=== PATIENT | female | born 1995 | race Hispanic/Latino ===

== ENCOUNTER 2024-12-26 05:34 | Emergency (ER) | payer SELFPAY ==
[~2024-12-26] VITALS: Ht 157.5 cm; Wt 90.7 kg
--- NOTE | 2024-12-26 05:50 | NUR ---
PT CARE ASSUMED AT THIS TIME
--- NOTE | 2024-12-26 05:59 | NUR ---
UA CUP PROVIDED TO PT
[2024-12-26 06:02] VITALS: TEMP 97.8
[2024-12-26 06:09] LABS: BASOPHILS # (AUTO) 0.05 K/uL (0.00-0.20); BASOPHILS % (AUTO) 0.4 % (0.0-5.0); EOSINOPHILS # (AUTO) 0.01 K/uL (0.00-0.70); EOSINOPHILS % (AUTO) 0.1 % (0.0-8.0); HEMATOCRIT 37.1 % (36-48); IMMATURE GRANULOCYTE ABSOLUTE 0.05 K/uL (0-1); LYMPHOCYTES # (AUTO) 1.5 K/uL (1.0-4.8); LYMPHOCYTES % (AUTO) 13.3 % (21.0-51.0); MEAN CORPUSCULAR HEMOGLOBIN 27.4 pg (27.0-33.0); MEAN CORPUSCULAR HGB CONC 32.6 g/dL (32.0-36.0); MEAN CORPUSCULAR VOLUME 83.9 fL (79-99); MONOCYTES # (AUTO) 0.5 K/uL (0.1-1.0); MONOCYTES % (AUTO) 4.4 % (3.0-13.0); NEUTROPHILS # (AUTO) 9.3 K/uL (1.8-7.7); NEUTROPHILS % (AUTO) 81.4 % (40.0-77.0); PLATELET COUNT (AUTO) 199 K/uL (130-400); RED BLOOD CELL COUNT(AUTO) 4.42 MIL/uL (4.00-5.50); WHITE BLOOD COUNT (AUTO) 11.4 K/uL (4.8-10.8)
--- NOTE | 2024-12-26 06:14 | ERN ---
ED Note History of Present Illness Stated Complaint: ABD PAIN Chief Complaint: Abdominal Pain Time Seen by MD: 05:51 Dictation: This is a 29-year-old female who presented to the emergency room with complaints of upper abdominal pain that started around 1:30 a.m.. She also began expe riencing vomitings and reports 5 episodes. No diarrhea and labs last bowel movement was 2024. No hematemesis or melena No other family members are sick. No fevers chills or rigors. Temperature 97.9 pulse 91 respirations 18 blood pressure 116/77 with a pulse oximetry of 95% on room air Allergies: Coded Allergies: Sulfa (Sulfonamide Antibiotics) (Unverified Allergy, Unknown, 12/26/24) Past Medical History Past Medical History: No Pertinent History Surgical History: None Family History: Negative LMP: December 09, 2024 RN Note Reviewed/Agreed w/PFSH: Yes Review of System Dictation Constitutional: Negative for fever,chills, and weight loss Eyes: Negative for injury, pain,redness, and discharge ENT: Negative for injury,pain or swelling Cardiovascular: Negative for chest pain, palpitations, and edema Respiratory: Negative for shortness of breath, cough, and wheezing, Abdomen/GI: Positive for epigastric and upper abdominal pain, nausea, vomiting, denied diarrhea, and constipation Back: Negative for injury and pain : Negative for injury, bleeding and discharge MS/Extremity: Negative for injury and deformity Skin: Negative for rash, and discoloration Neuro: Negative for headache, weakness, numbness, tingling, and seizure Psych: Negative for suicide ideation, homicidal ideation, and hallucinations Initial Vital Sign VS Vital Signs Date Time Temp Pulse Resp B/P (MAP) Pulse Ox O2 Delivery O2 Flow Rate FiO2 12/26/24 05:36 97.9 91 18 116/77 98 Room Air 12/26/24 06:02 0 21 Physical Exam Dictation General: awake, alert, NAD morbidly obese female Head/Face: Normocephalic, atraumatic Eyes: PERRL, EOMI, vision at baseline ENT: oral cavity clear, TMs clear, no signs of infection Neck: Trachea midline, supple, no nuchal rigidity Cardiovascular: RRR, normal S1/S2, No MRGs, no JVD Respiratory: CTAB, no respiratory distress, No rales or wheezes Abdomen: Soft, non-tender, non-distended, normal bowel sounds, no guarding or rebound. Skin: Warm, dry, normal turgor, no rash MS/Extremity: Pulses equal, no cyanosis, neurovascular intact, FROM Neuro: COAx4, GCS 15, strength 5/5, CN 2-12 intact, normal cerebellar exam, normal gait, Psych: Normal behavior, mood, and affect normal Extremities-trace edema without any palpable cords, Homans sign is negative Results (Laboratory/Radiology) Laboratory/Radiology Laboratory Tests Test 12/26/24 05:58 White Blood Count 11.4 K/uL (4.8-10.8) H Red Blood Count 4.42 MIL/uL (4.00-5.50) Hemoglobin 12.1 g/dL (12.0-16.0) Hematocrit 37.1 % (36-48) Mean Corpuscular Volume 83.9 fL (79-99) Mean Corpuscular Hemoglobin 27.4 pg (27.0-33.0) Mean Corpuscular Hemoglobin Concent 32.6 g/dL (32.0-36.0) Red Cell Distribution Width 12.0 % (11.0-15.5) Platelet Count 199 K/uL (130-400) Mean Platelet Volume 10.9 fL (7.5-10.5) H Immature Granulocyte % (Auto) 0.4 % (0-1) Neutrophils (%) (Auto) 81.4 % (40.0-77.0) H Lymphocytes (%) (Auto) 13.3 % (21.0-51.0) L Monocytes (%) (Auto) 4.4 % (3.0-13.0) Eosinophils (%) (Auto) 0.1 % (0.0-8.0) Basophils (%) (Auto) 0.4 % (0.0-5.0) Neutrophils # (Auto) 9.3 K/uL (1.8-7.7) H Lymphocytes # (Auto) 1.5 K/uL (1.0-4.8) Monocytes # (Auto) 0.5 K/uL (0.1-1.0) Eosinophils # (Auto) 0.01 K/uL (0.00-0.70) Basophils # (Auto) 0.05 K/uL (0.00-0.20) Absolute Immature Granulocyte (auto 0.05 K/uL (0-1) Nucleated Red Blood Cells 0.0 % (0.0-0.19) Sodium Level 138 mmol/L (136-145) Potassium Level 4.0 mmol/L (3.5-5.1) Chloride Level 101 mmol/L (101-111) Carbon Dioxide Level 28 mmol/L (21-32) Blood Urea Nitrogen 10 mg/dL (7-18) Creatinine 0.6 mg/dL (0.5-1.0) Glomerular Filtration Rate Calc 125 mL/min (>90) Random Glucose 134 mg/dL (70-105) H Total Calcium 8.8 mg/dL (8.5-10.1) Lipase 27 U/L (16-77) Labs Reviewed?: Yes ED Course ED Course Orders Procedure Category Date Status Time Vital Signs Per CPOE 12/26/24 Transmitted Routine 05:44 Saline Lock Iv CPOE 12/26/24 Transmitted 05:44 Cbc With Differential LAB 12/26/24 Complete 05:44 Lipase LAB 12/26/24 Complete 05:44 Urinalysis Profile LAB 12/26/24 Logged 05:44 Basic Metabolic Panel LAB 12/26/24 Complete 05:44 ,Urine Test LAB 12/26/24 Logged 05:44 0.9%Nacl 1000ml (Ns PHA 12/26/24 Complete 1000ml) 06:30 Morphine 2mg Syg PHA 12/26/24 Complete (Morphine 2mg Syg) 06:30 Ondansetron 4mg Inj PHA 12/26/24 Complete (Zofran 4mg Inj) 06:30 Current Medications Medications (Trade) Dose Ordered Sig/Yannick Route PRN Reason Start Time Stop Time Status Last Admin Dose Admin Morphine Sulfate (morPHINE 2MG SYG) 2 mg ONCE ONCE IVP 12/26/24 06:30 12/26/24 06:31 DC 12/26/24 06:26 Ondansetron HCl (zoFRAN 4MG INJ) 4 mg ONCE ONCE IVP 12/26/24 06:30 12/26/24 06:31 DC 12/26/24 06:25 Sodium Chloride 1,000 ml @ 0 mls/hr ONCE ONCE IV 12/26/24 06:30 12/26/24 06:31 DC 12/26/24 06:25 Vital Signs Date Time Temp Pulse Resp B/P (MAP) Pulse Ox O2 Delivery O2 Flow Rate FiO2 12/26/24 06:02 97.9 75 18 111/76 100 Room Air* 0 21 12/26/24 05:36 97.9 91 18 116/77 98 Room Air We will perform diagnostic labs, advanced imaging and administer medications according to the patient's complaint. Once the results are available, will r stevieiew and personally interpreted the labs to rule out any acute life-threatening emergency the trach require immediate intervention and treatment. I will then re-evaluate the patient after treatment and diagnostic exams have return to determine whether the patient requires any further testing, can safely be discharged home or need further admission to hospital for additional treatment and evaluation. Reviewed CBC BNP 7 relatively with a normal limits WBC 11.4. Lipase is 77 7:08 a.m. patient is already feeling better no further vomitings. I updated her on the labs and with a soft benign belly likely food poisoning. We will discharge her on antiemetics Medical Decision Making MDM MDM: Differential diagnosis: Gastritis, esophagitis, gastroesophageal reflux disease, food poisoning, cholecystitis Rationale: Tests considered and ordered secondary to shared decision making include: Previous outside records reviewed: Old ER visits. Risk of complication and/or morbidity or mortality of patient management: None Medications-Per medication reconciliation Need for hospitalization: Patient does not meet criteria for hospitalization. Need for emergency major/minor surgery: No There are no social concerns with this patient. Prescription drug management Prescriptions will include symptomatic care Patient's prior external medical records from other ER visits were reviewed by me as indicated. Prior testing and results from previous visits were reviewed. Prior tests were taken into account with medical decision making and resource utilization, independent historian/historians were used to obtain complete medical history. I independently interpreted the test that were performed, results were reviewed by me and considered findings on radiology if ordered. Medical management and examination interpretation discussions were had by me with other qualified healthcare professionals as indicated for the patient's care. Problem List Problem List: (1) Gastritis (2) Food poisoning DX & DISP Disposition: Discharge Departure Impression: Primary Impression: Food poisoning Additional Impression: Gastritis Condition: Stable Scripts Ondansetron (Ondansetron Odt) 4 Mg Tab.rapdis 4 MG PO Q6HPRN PRN for nausea, #16 TAB 0 Refills Prov: AMERICA VALENCIA MD 12/26/24 Additional Instructions: Patient and the caregiver have been informed of all the diagnostic tests and the imaging conducted during the today's visit to the emergency room and has verbalized understanding of the results I have personally reviewed and interpreted all diagnostic exams performed here in the ER today as well as the vital signs documented by the nursing staff. The patient is now being discharged to home and should follow up with the primary care physician or the specialist as directed by the ER staff. Follow-up with primary care provider in 1 to 2 days. Take medications as directed here in the emergency room. Okay to continue home medications unless otherwise discussed during your visit in the emergency room today. Return to your nearest emergency room if symptoms worsen or if there is no improvement. Call 911 if you need immediate assistance. Take Tylenol or Motrin [id number] as needed and if no contraindications are present. Increase oral hydration. A wound culture or urine culture was ordered here in the emergency room department please follow-up with primary care provider and advise them to get repeat ports from our facility. If you had any Luca wrap/splints that were applied here, please do not remove them until you see your primary care or specialty. Referrals: SELF,REFERRAL (PCP) AMERICA VALENCIA MD December 26, 2024 06:14
[2024-12-26 06:19] LABS: CREATININE 0.6 mg/dL (0.5-1.0)
[2024-12-26] MEDS: ondanSETRON 4MG INJ IVP ONE (06:25)
[2024-12-26] MEDS: 0.9%NACL 1000ML 1,000 ML IV ONE (06:25)
[2024-12-26] MEDS: morPHINE 2 MG SYG IVP ONE (06:26)
--- NOTE | 2024-12-26 07:06 | NUR ---
REPORTS GIVEN TO MICHAELLE HUFFMAN AT THIS TIME
[2024-12-26 07:07] VITALS: BP 101/62; PULSE 75; RESP 16; O2SAT 100
[2024-12-26] MEDS ORDERED: ONDA-243 PO (07:07)
--- NOTE | 2024-12-26 07:31 | NUR ---
PT GIVEN INSTRUCTIONS, PT STABLE VITALS WNL NO C/O PAIN . PT IV REMOVED CATHETER INTACT. PT DRIVEN HOME BY FAMILY.
== END 2024-12-26 07:43 | disposition home or self-care (01) ==
LOC: EDH 05:34
DX: A05.9 Bacterial foodborne intoxication, unspecified (principal); K29.70 Gastritis, unspecified, without bleeding; Z88.2 Allergy status to sulfonamides
CPT/HCPCS: 99284; 96374; 96361; 96375; 80048; 83690; 85025; 36415; J2270; J7030; J2405

== ENCOUNTER 2024-12-31 19:50 | Inpatient (IN) | payer SELFPAY ==
[~2024-12-31] VITALS: Ht 157.5 cm; Wt 70.8 kg
[~2024-12-31 19:50] MED LIST: ONDA-243 PO
[2024-12-31] MEDS: ondanSETRON 4MG INJ IVP ONE (20:20)
[2024-12-31] MEDS: FAMOTIDINE 20MG VIAL IV ONE (20:20)
[2024-12-31] MEDS: 0.9%NACL 1000ML 1,000 ML IV ONE (20:20)
[2024-12-31] MEDS: morPHINE 2 MG SYG IVP ONE (20:20)
[2024-12-31 20:22] LABS: BASOPHILS # (AUTO) 0.05 K/uL (0.00-0.20); BASOPHILS % (AUTO) 0.4 % (0.0-5.0); EOSINOPHILS % (AUTO) 0.8 % (0.0-8.0); HEMATOCRIT 37.1 % (36-48); IMMATURE GRANULOCYTE ABSOLUTE 0.05 K/uL (0-1); LYMPHOCYTES # (AUTO) 1.6 K/uL (1.0-4.8); LYMPHOCYTES % (AUTO) 13.2 % (21.0-51.0); MEAN CORPUSCULAR HEMOGLOBIN 27.8 pg (27.0-33.0); MEAN CORPUSCULAR HGB CONC 32.3 g/dL (32.0-36.0); MEAN CORPUSCULAR VOLUME 85.9 fL (79-99); MONOCYTES # (AUTO) 0.7 K/uL (0.1-1.0); MONOCYTES % (AUTO) 5.6 % (3.0-13.0); NEUTROPHILS # (AUTO) 9.6 K/uL (1.8-7.7); NEUTROPHILS % (AUTO) 79.6 % (40.0-77.0); PLATELET COUNT (AUTO) 254 K/uL (130-400); RED BLOOD CELL COUNT(AUTO) 4.32 MIL/uL (4.00-5.50); WHITE BLOOD COUNT (AUTO) 12.1 K/uL (4.8-10.8)
[2024-12-31 20:35] LABS: CREATININE 0.6 mg/dL (0.5-1.0); POTASSIUM 3.7 mmol/L (3.5-5.1)
[2024-12-31 20:41] LABS: ALBUMIN 3.8 g/dL (3.5-5.0); BILIRUBIN,DIRECT 0.1 mg/dL (0.0-0.3); BILIRUBIN,TOTAL 0.3 mg/dL (0.2-1.0); TOTAL PROTEIN, SERUM 7.8 g/dL (6.0-8.3)
[2024-12-31] MEDS ORDERED: IOHEXOL-350 75 ML VIAL IV ONE (21:07)
--- NOTE | 2024-12-31 21:47 | HMCIMG ---
CT ABDOMEN WITH CONTRAST. CT PELVIS WITH CONTRAST INDICATION: Right upper abdominal tenderness TECHNIQUE: Routine transaxial images using 5 mm slice thickness were obtained after the intravenous infusion of 100 mL of Omnipaque 350 without adverse effects. Oral contrast was not administered. Rectal contrast was not administered. Coronal and sagittal reformatted images acquired for interpretation. CT was performed with one or more of the following dose reduction techniques: Automated exposure control, adjustment of the mA and/or kV according to patient size, or use of iterative reconstruction technique. COMPARISON: None FINDINGS: ABDOMEN: Heart size is normal. Visible lung bases are clear. The liver is normal in size and smooth in contour without lesions or biliary duct dilation. Diffuse low attenuation of the liver parenchyma suggests fatty change. The spleen is normal in size without lesions. Gallbladder wall thickening and mild pericholecystic inflammatory fat stranding. Mild gallbladder wall distention. The pancreas appears normal without pancreatic duct dilation. The adrenal glands appear normal. Both kidneys appear unremarkable. Cortical nephrograms are symmetric and normal in appearance bilaterally. No evidence for intra-abdominal free air or organized fluid collection. No retrocrural, intraabdominal, or retroperitoneal lymphadenopathy identified. No aortic aneurysmal dilation or dissection identified. PELVIS: No evidence for free air or organized pelvic fluid collection. No significant pelvic adenopathy detected. Visualized small and large bowel loops appear unremarkable. Terminal ileum appears normal. The appendix appears normal. The urinary bladder appears unremarkable. Visible osseous structures are intact. IMPRESSION: Findings suggesting acute cholecystitis. Hepatic steatosis.
--- NOTE | 2024-12-31 22:07 | HP ---
[facility] HISTORY AND PHYSICAL Date of Service: December 31, 2024 Time of Service: 22:07 Attending/supervising physicians: Dr. Lay and Dr. Ford HISTORY OF PRESENT ILLNESS: Ms. Ross is a 29-year-old female who [place] [facility] [place] evaluation of right upper abdominal pain ongoing for five days p.r.n. Per chart review, the patient presented to the hospital on 12/26/2024 for evaluation of upper abdominal pain. At that time she reports she was experienced five episodes of vomiting. Patient denied diarrhea, hematemesis or melena. The patient was discharged home with the diagnosis of gastritis and food poisoning. She was given a prescription for Zofran. Today she presented for worsening abdominal pain. Remarkable lab results: WBCs 12.1, BUN 4, glucose 107, alk-phos 47. CT abdomen and pelvis: Gallbladder wall thickening and mild pericholecystic inflammatory fat stranding. Mild gallbladder wall distention. Findings suggesting acute cholecystitis. Hepatic steatosis. In ED the patient received Zofran 4 mg IV, Pepcid 20 mg IV, morphine 2 mg IV, Toradol 50 mg IV, NS1 L bolus, Zosyn 3.375. ED provider request patient be admitted with the diagnosis of acute cholecystitis. REVIEW OF SYSTEMS 12-point ROS reviewed with the patient. All pertinent positives mentioned above. Otherwise negative, noncontributory, non-pertinent. PAST MEDICAL HISTORY: As mentioned above PAST SURGICAL HISTORY: None PAST SOCIAL HISTORY: Patient denies alcohol, tobacco, illicit drug use. FAMILY HISTORY: Noncontributory Coded Allergies: Sulfa (Sulfonamide Antibiotics) (Unverified Allergy, Unknown, 12/26/24) PHYSICAL EXAM GENERAL APPEARANCE: The patient is awake, alert, and oriented, in no acute cardiopulmonary distress. NEUROLOGICAL: Cranial nerves II-XII grossly intact. Motor is 5/5 in bilateral upper and lower extremities proximal to distal. No sensory deficits. HEENT: Face is symmetric. Pupils are equal and reactive. Extraocular movements are intact. NECK: Supple. No JVD. No thyromegaly. No submental, submandibular, pre-/posta uricular, occipital or supraclavicular lymphadenopathy. CHEST: Normal chest expansion. No Telemetry. LUNGS: Absence of any rales, rhonchi or any wheezing. CARDIOVASCULAR: Regular. S1 and S2 normal. No appreciable rubs, murmurs or gallops. ABDOMEN: Obese. Upper abdominal tenderness. Soft and nondistended. There is no rebound, voluntary guarding, or rigidity. : Deferred. No Wren. EXTREMITIES: Non-edematous and not cyanotic. No clubbing. Good capillary refill. SKIN: No skin breakdown. Vital Sign (Last 24 Hours) 12/31/24 12/31/24 20:00 20:51 Temp 99.3 Pulse 95 Resp 16 B/P (MAP) 115/77 Pulse Ox 100 O2 Delivery Room Air* O2 Flow Rate 0 FiO2 21 LABS: Laboratory: Test 12/31/24 20:14 Range/Units White Blood Count 12.1 H 4.8-10.8 K/uL Red Blood Count 4.32 4.00-5.50 MIL/uL Hemoglobin 12.0 12.0-16.0 g/dL Hematocrit 37.1 36-48 % Mean Corpuscular Volume 85.9 79-99 fL Mean Corpuscular Hemoglobin 27.8 27.0-33.0 pg Mean Corpuscular Hemoglobin Concent 32.3 32.0-36.0 g/dL Red Cell Distribution Width 12.0 11.0-15.5 % Platelet Count 254 130-400 K/uL Mean Platelet Volume 10.0 7.5-10.5 fL Immature Granulocyte % (Auto) 0.4 0-1 % Neutrophils (%) (Auto) 79.6 H 40.0-77.0 % Lymphocytes (%) (Auto) 13.2 L 21.0-51.0 % Monocytes (%) (Auto) 5.6 3.0-13.0 % Eosinophils (%) (Auto) 0.8 0.0-8.0 % Basophils (%) (Auto) 0.4 0.0-5.0 % Neutrophils # (Auto) 9.6 H 1.8-7.7 K/uL Lymphocytes # (Auto) 1.6 1.0-4.8 K/uL Monocytes # (Auto) 0.7 0.1-1.0 K/uL Eosinophils # (Auto) 0.10 0.00-0.70 K/uL Basophils # (Auto) 0.05 0.00-0.20 K/uL Absolute Immature Granulocyte (auto 0.05 0-1 K/uL Nucleated Red Blood Cells 0.0 0.0-0.19 % Sodium Level 140 136-145 mmol/L Potassium Level 3.7 3.5-5.1 mmol/L Chloride Level 102 101-111 mmol/L Carbon Dioxide Level 29 21-32 mmol/L Blood Urea Nitrogen 4 L 7-18 mg/dL Creatinine 0.6 0.5-1.0 mg/dL Glomerular Filtration Rate Calc 125 >90 mL/min Random Glucose 107 H 70-105 mg/dL Total Calcium 9.4 8.5-10.1 mg/dL Total Bilirubin 0.3 0.2-1.0 mg/dL Direct Bilirubin 0.1 0.0-0.3 mg/dL Aspartate Amino Transf (AST/SGOT) 19 10-37 U/L Alanine Aminotransferase (ALT/SGPT) 20 12-78 U/L Alkaline Phosphatase 47 L 50-136 U/L Total Protein 7.8 6.0-8.3 g/dL Albumin 3.8 3.5-5.0 g/dL Lipase 26 16-77 U/L Serum Test, Qualitative NEGATIVE NEGATIVE DIAGNOSTICS / RADIOLOGY: [ ] ASSESSMENT: Acute cholecystitis, POA Acute complicated cystitis, POA Dehydration, POA Leukocytosis, POA Hyperglycemia without history of diabetes mellitus Ketonuria, POA Obesity, BNP 28.6 PLAN: Admit to medical floor. NPO for now. Continue Zosyn 3.375 IV q.8 hours. (1st dose of Zosyn was administered in ED) LR at 100 mL/hr. P.r.n. medications for: Pain management, fever, nausea, vomiting, constipation, hypertension. Consult general surgeon in a.m.. Follow urine culture. Antibiotics tailored to culture results. As needed glucometer sticks. Blood pressure checks every 4 hours and as needed. Monitor renal and liver function. Monitor electrolytes and treat accordingly. GI and DVT prophylaxis. A.m. labs. ADVANCED CARE PLANNING 1. Which of the following were discussed? Hospice Care - No Therapeutic options - Yes Advance Directives - Yes Other discussions - 2. Discussed with who? Patient 3. Voluntary nature of this service was explained to the patient? Yes 4. Amount of time spent - __ over 35 minutes 5. Reviewed by Physician? (if this service was performed by NPP) Yes ATTESTATION BY PHYSICIAN I have seen and examined the patient. I reviewed the documentation, medical decision making, and treatment plan as noted by the mid-level provider above. I agree with the findings and plan of care. ENE CANAS SHOP REPAIRER December 31, 2024 22:07
[2024-12-31] MEDS: ketOROlac 15MG/ML VIAL (15MG/ML) IV ONE (22:12)
[2024-12-31] MEDS: ZOSYN 3.375GM +NS 50ML IV ONE (22:12)
--- NOTE | 2024-12-31 22:12 | ERN ---
General Chief Complaint: Abdominal Pain Stated Complaint: ABD PAIN Time Seen by MD: 19:56 Time Seen by Midlevel: 19:56 Source: patient History of Present Illness Initial Comments The patient is a 29-year-old female with no significant past medical history presenting to the emergency department with right upper quadrant abdominal pain that has been ongoing for five days. The patient was seen in our emergency department approximately one week ago for similar symptoms but was diagnosed with food poisoning Allergies: Coded Allergies: Sulfa (Sulfonamide Antibiotics) (Unverified Allergy, Unknown, 12/26/24) Home Meds Active Scripts Ondansetron (Ondansetron Odt) 4 Mg Tab.rapdis, 4 MG PO Q6HPRN PRN for nausea, #16 TAB 0 Refills Prov:AMERICA VALENCIA MD 12/26/24 Past Medical History Past Medical History: No Pertinent History Past Surgical History: None Family History Family History: Negative Female( History) LMP: Dec 06, 2024 ROS Dictation CONSTITUTIONAL: Negative except for HPI HEAD/FACE: Negative except for HPI EENT: Negative except for HPI RESPIRATORY: Negative except for HPI GASTROINTESTINAL/ABDOMINAL: Negative except for HPI GENITOURINARY: Negative except for HPI MUSCULOSKELETAL: Negative except for HPI INTEGUMENTARY: Negative except for HPI NEUROLOGICAL/PSYCH: Negative except for HPI HEMATOLOGIC/LYMPHATIC: Negative except for HPI All Systems Negative, Except as noted above. 13 point review of systems assessed and all negative except for above. Physical Exam Physical Exam Dictation Vital Signs reviewed General Appearance: Alert, oriented x 3, no acute distress, well developed, nourished. Head and Face: non-traumatic. Eyes: PERRL, pink conjunctivas, eyelid no trauma, anterior chamber with arcus senilis. Ears: Pinnas intact and no signs of trauma or erythema ear canals clear and no discharge TM no erythema Nose: No discharge, no bleeding. Oropharynx: Mouth normal, tongue pink, pharynx clear,no erythema, tonsils no exudates, no abscesses noted, mucous membrane moist Neck: Supple, non-tender, no thyromegaly, no masses, no JVD, no bruits Breast:Deferred Chest:No tenderness, no crepitus, no paradoxical movement, no retractions Lungs:Clear, well-ventilated, symmetric, no rales, no wheezing, no rhonchi, no stridor, good breath sounds bilaterally Heart: Regular rate, regular rhythm, no murmur, no gallops Vascular: no peripheral edema, Abdomen: Soft, positive bowel sounds, nondistended, no guarding, nontender, no rebound, no masses no hepatomegaly, no splenomegaly, no Pavon's sign, no hernias. Rectal: Deferred Genital: Deferred Neurological: Normal speech, motor function intact, sensory function intact Musculoskeletal: Neck nontender, full range of motion, back nontender, full range of motion, Extremities: nontender, full range of motion Skin: Color pink, dry, no turgor, no rash, no lacerations, no abrasions, no contusions. Lymphatic: Deferred Results Laboratory and Microbiology Lab and Micro Result Laboratory Tests Test 12/31/24 20:14 White Blood Count 12.1 K/uL (4.8-10.8) H Red Blood Count 4.32 MIL/uL (4.00-5.50) Hemoglobin 12.0 g/dL (12.0-16.0) Hematocrit 37.1 % (36-48) Mean Corpuscular Volume 85.9 fL (79-99) Mean Corpuscular Hemoglobin 27.8 pg (27.0-33.0) Mean Corpuscular Hemoglobin Concent 32.3 g/dL (32.0-36.0) Red Cell Distribution Width 12.0 % (11.0-15.5) Platelet Count 254 K/uL (130-400) Mean Platelet Volume 10.0 fL (7.5-10.5) Immature Granulocyte % (Auto) 0.4 % (0-1) Neutrophils (%) (Auto) 79.6 % (40.0-77.0) H Lymphocytes (%) (Auto) 13.2 % (21.0-51.0) L Monocytes (%) (Auto) 5.6 % (3.0-13.0) Eosinophils (%) (Auto) 0.8 % (0.0-8.0) Basophils (%) (Auto) 0.4 % (0.0-5.0) Neutrophils # (Auto) 9.6 K/uL (1.8-7.7) H Lymphocytes # (Auto) 1.6 K/uL (1.0-4.8) Monocytes # (Auto) 0.7 K/uL (0.1-1.0) Eosinophils # (Auto) 0.10 K/uL (0.00-0.70) Basophils # (Auto) 0.05 K/uL (0.00-0.20) Absolute Immature Granulocyte (auto 0.05 K/uL (0-1) Nucleated Red Blood Cells 0.0 % (0.0-0.19) Sodium Level 140 mmol/L (136-145) Potassium Level 3.7 mmol/L (3.5-5.1) Chloride Level 102 mmol/L (101-111) Carbon Dioxide Level 29 mmol/L (21-32) Blood Urea Nitrogen 4 mg/dL (7-18) L Creatinine 0.6 mg/dL (0.5-1.0) Glomerular Filtration Rate Calc 125 mL/min (>90) Random Glucose 107 mg/dL (70-105) H Total Calcium 9.4 mg/dL (8.5-10.1) Total Bilirubin 0.3 mg/dL (0.2-1.0) Direct Bilirubin 0.1 mg/dL (0.0-0.3) Aspartate Amino Transf (AST/SGOT) 19 U/L (10-37) Alanine Aminotransferase (ALT/SGPT) 20 U/L (12-78) Alkaline Phosphatase 47 U/L (50-136) L Total Protein 7.8 g/dL (6.0-8.3) Albumin 3.8 g/dL (3.5-5.0) Lipase 26 U/L (16-77) Serum Test, Qualitative NEGATIVE (NEGATIVE) Labs Reviewed?: Yes MDM MDM: Differential diagnosis: Acute cholecystitis, pancreatitis, biliary colic Rationale: Tests considered and ordered secondary to shared decision making include: Previous outside records reviewed: Old ER visits. Risk of complication and/or morbidity or mortality of patient management: None Medications-Per medication reconciliation Need for hospitalization: Patient does meet criteria for hospitalization. Need for emergency major/minor surgery: No There are no social concerns with this patient. Prescription drug management Prescriptions will include symptomatic care Patient's prior external medical records from other ER visits were reviewed by me as indicated. Prior testing and results from previous visits were reviewed. Prior tests were taken into account with medical decision making and resource utilization, independent historian/historians were used to obtain complete medical history. I independently interpreted the test that were performed, results were reviewed by me and considered findings on radiology if ordered. Medical management and examination interpretation discussions were had by me w ith other qualified healthcare professionals as indicated for the patient's care. ED Course Orders Procedure Category Date Status Time Cbc With Differential LAB 12/31/24 Complete 20:03 Basic Metabolic Panel LAB 12/31/24 Complete 20:03 Hepatic Function Panel LAB 12/31/24 Complete 20:03 Lipase LAB 12/31/24 Complete 20:03 Testing, LAB 12/31/24 Complete Serum Hcg 20:03 Ondansetron 4mg Inj PHA 12/31/24 Complete (Zofran 4mg Inj) 20:30 Famotidine 20mg Vial PHA 12/31/24 Complete (Pepcid 20mg Vial) 20:30 Morphine 2mg Syg PHA 12/31/24 Complete (Morphine 2mg Syg) 20:30 0.9%Nacl 1000ml (Ns PHA 12/31/24 Complete 1000ml) 20:30 Ct Abdomen/Pelvis CT 12/31/24 Resulted W/Contrast 20:03 Iohexol (Omnipaque) PHA 12/31/24 Complete 21:07 Zosyn 3.375gm+Ns 50ml PHA 12/31/24 Complete (Zosyn 3.375gm+Ns 22:00 Ketorolac PHA 12/31/24 Logged Tromethamine 15mg/Ml 22:00 Current Medications Medications (Trade) Dose Ordered Sig/Yannick Route PRN Reason Start Time Stop Time Status Last Admin Dose Admin Famotidine (Pepcid 20mg Vial) 20 mg ONCE ONCE IV 12/31/24 20:30 12/31/24 20:31 DC 12/31/24 20:20 Iohexol (Omnipaque) 75 ml STK-MED ONCE IV 12/31/24 21:07 12/31/24 21:08 DC Ketorolac Tromethamine (toRADol) 15 mg ONCE ONCE IV 12/31/24 22:00 12/31/24 22:01 UNV Morphine Sulfate (morPHINE 2MG SYG) 2 mg ONCE ONCE IVP 12/31/24 20:30 12/31/24 20:31 DC 12/31/24 20:20 Ondansetron HCl (zoFRAN 4MG INJ) 4 mg ONCE ONCE IVP 12/31/24 20:30 12/31/24 20:31 DC 12/31/24 20:20 Piperacillin Sod/ Tazobactam Sod (Zosyn 3.375gm+NS 50ml) 3.375 gm ONCE ONCE IV 12/31/24 22:00 12/31/24 22:02 DC Sodium Chloride 1,000 ml @ 0 mls/hr ONCE ONCE IV 12/31/24 20:30 12/31/24 20:31 DC 12/31/24 20:20 Vital Signs Date Time Temp Pulse Resp B/P (MAP) Pulse Ox O2 Delivery O2 Flow Rate FiO2 12/31/24 20:51 95 16 115/77 100 Room Air* 0 21 12/31/24 20:00 99.3 81 19 123/79 98 Room Air [place] [id number] [address] IMAGING REPORT Signed PATIENT: MONICA SMITH MR#: [id number] : 1995 SEX: F AGE: 29 LOCATION: [facility] ORDER 03 STATUS: REG ER REPORT#: [id number] SERVICE 02 REASON: RUQ abd tenderness r/o acute erika ORDERING PHYSICIAN: YOUSIF ALEJO PROCEDURE: ABD PEL W - CT ABDOMEN/PELVIS W/CONTRAST CT ABDOMEN WITH CONTRAST. CT PELVIS WITH CONTRAST INDICATION: Right upper abdominal tenderness TECHNIQUE: Routine transaxial images using 5 mm slice thickness were obtained after the intravenous infusion of 100 mL of Omnipaque 350 without adverse effects. Oral contrast was not administered. Rectal contrast was not administered. Coronal and sagittal reformatted images acquired for interpretation. CT was performed with one or more of the following dose reduction techniques: Automated exposure control, adjustment of the mA and/or kV according to patient size, or use of iterative reconstruction technique. COMPARISON: None FINDINGS: ABDOMEN: Heart size is normal. Visible lung bases are clear. The liver is normal in size and smooth in contour without lesions or biliary duct dilation. Diffuse low attenuation of the liver parenchyma suggests fatty change. The spleen is normal in size without lesions. Gallbladder wall thickening and mild pericholecystic inflammatory fat stranding. Mild gallbladder wall distention. The pancreas appears normal without pancreatic duct dilation. The adrenal glands appear normal. Both kidneys appear unremarkable. Cortical nephrograms are symmetric and normal in appearance bilaterally. No evidence for intra-abdominal free air or organized fluid collection. No retrocrural, intraabdominal, or retroperitoneal lymphadenopathy identified. No aortic aneurysmal dilation or dissection identified. PELVIS: No evidence for free air or organized pelvic fluid collection. No significant pelvic adenopathy detected. Visualized small and large bowel loops appear unremarkable. Terminal ileum appears normal. The appendix appears normal. The urinary bladder appears unremarkable. Visible osseous structures are intact. IMPRESSION: Findings suggesting acute cholecystitis. Hepatic steatosis. DICTATED BY: AZAEL CASTREJON MD DATE: 12/31/242143 ELECTRONICALLY SIGNED BY: AZAEL CASTREJON MD DATE: 12/31/242146 DX & DISP Disposition: Inpatient Decision to Admit Date: December 31, 2024 Decision to Admit Time: 22:12 Departure Impression: Primary Impression: Acute cholecystitis Additional Impression: Leukocytosis Condition: Stable Referrals: SELF,REFERRAL (PCP) Time of Disposition: 22:11 I have reviewed the case, and I agree with, Diagnosis and Plan I performed the substantive portion of the visit. I have reviewed and personally made and approve the management plan that is documented in the note by myself or the LELIA. I acknowledge for responsibility for the patient's management plan. YOUSIF ALEJO December 31, 2024 22:12
[2024-12-31] MEDS: ketOROlac 15MG/ML VIAL (15MG/ML) ONE (22:13)
[2024-12-31 22:29] LABS: APPEARANCE,URINE CLEAR (CLEAR); BILIRUBIN,URINE NEGATIVE (NEGATIVE); COLOR,URINE COLORLESS (YELLOW); GLUCOSE, URINE (UA) NEGATIVE (NEGATIVE); KETONES,URINE 40 mg/dL (NEGATIVE); LEUKOCYTE ESTERASE ,URINE 250 Leu/uL (NEGATIVE); NITRATE,URINE NEGATIVE (NEGATIVE); OCCULT BLOOD,URINE NEGATIVE (NEGATIVE); PROTEIN,URINE NEGATIVE (NEGATIVE); UROBILINOGEN,URINE 0.2 mg/dL (0.2-1.0)
[2024-12-31] MEDS ORDERED: morPHINE 2 MG SYG IVP PRN (22:30)
[2024-12-31] MEDS ORDERED: LACTULOSE 20 GM/30 ML UDCUP PO PRN (22:30)
[2024-12-31] MEDS ORDERED: TEMAZepam 15 MG CAPSULE PO PRN (22:30)
[2024-12-31] MEDS ORDERED: doCUSate SODIUM 100 MG CAP PO PRN (22:30)
[2024-12-31] MEDS ORDERED: acetaMINOPHEN 650 MG SUPPOSITORY RC PRN (22:30)
[2024-12-31] MEDS ORDERED: LAbetaLOL 20MG SYG IV PRN (22:30)
[2024-12-31 22:43] LABS: ADD UA MICROSCOPIC YES
[2024-12-31 22:44] LABS: RBC,URINE 0-1 /HPF (0-1); SQUAMOUS EPITHELIAL CELL,UR RARE /HPF (0-2)
[2024-12-31] MEDS: LACTATED RINGERS 1000ML 1,000 ML IV SCH (22:55)
[2025-01-01] VITALS (9 sets, daily range): BP systolic 96–121; BP diastolic 60–84; PULSE 66–107; RESP 16–18; TEMP 98–98.7; O2SAT 95–99
[2025-01-01] MEDS: ketOROlac 30MG VIAL (30MG/ML) IVP PRN (03:37)
[2025-01-01 04:32] LABS: HEMATOCRIT 34.9 % (36-48); MEAN CORPUSCULAR HEMOGLOBIN 27.6 pg (27.0-33.0); MEAN CORPUSCULAR HGB CONC 32.4 g/dL (32.0-36.0); MEAN CORPUSCULAR VOLUME 85.3 fL (79-99); RED BLOOD CELL COUNT(AUTO) 4.09 MIL/uL (4.00-5.50); RED CELL DISTRIBUTION WIDTH 12.1 % (11.0-15.5); WHITE BLOOD COUNT (AUTO) 12.9 K/uL (4.8-10.8)
[2025-01-01 05:04] LABS: MAGNESIUM 1.9 mg/dL (1.80-2.40); PHOSPHORUS 4.4 mg/dL (2.5-4.9); THYROID STIMULATING HORMONE 1.49 uIU/mL (0.36-3.74)
[2025-01-01] MEDS: ZOSYN 3.375GM +NS 50ML IV SCH (05:38)
--- NOTE | 2025-01-01 13:00 | NUR ---
MET W PATIENT AT BEDSIDE FOR DISCHARGE PLANNING. LIVES WITH DAD MOM AND BROTHER, CURRENTLY UNEMPLOYED, NO DME NO SERVICES, DRIVES, INDEPENDENT AND ACTIVE. HERE FOR CHOLECYSTITIS, WAITING ON SURGICAL DECISION DCP HOME *STILL PENDING [facility] * Addendum: 01/01/25 at 1836 by MALIK JUAREZ RN CM Amended: Links added.
--- NOTE | 2025-01-01 13:57 | PN ---
[facility] PROGRESS NOTE Date of Service: January 01, 2025 Time of Service: 13:55 SUBJECTIVE: [29-year-old female admitted due to ongoing abdominal pain for five days associated with nausea and vomiting. In the ER, a CT abdomen and pelvis was done which suggested acute cholecystitis. Patient is currently NPO and on IV fluids with IV antibiotics. We will be consulting general surgeon to evaluate for further recommendations. ] REVIEW OF SYSTEMS 12-point ROS reviewed with the patient. All pertinent positives mentioned above. Otherwise negative, noncontributory, non-pertinent. PHYSICAL EXAM GENERAL APPEARANCE: The patient is awake, alert, and oriented, in no acute cardiopulmonary distress. NEUROLOGICAL: Cranial nerves II-XII grossly intact. Motor is 5/5 in bilateral upper and lower extremities proximal to distal. No sensory deficits. HEENT: Face is symmetric. Pupils are equal and reactive. Extraocular movements are intact. NECK: Supple. No JVD. No thyromegaly. No submental, submandibular, pre- /postauricular, occipital or supraclavicular lymphadenopathy. CHEST: Normal chest expansion. No Telemetry. LUNGS: Absence of any rales, rhonchi or any wheezing. CARDIOVASCULAR: Regular. S1 and S2 normal. No appreciable rubs, murmurs or gallops. ABDOMEN: Obese. Upper abdominal tenderness. Soft and nondistended. There is no rebound, voluntary guarding, or rigidity. : Deferred. No Wren. EXTREMITIES: Non-edematous and not cyanotic. No clubbing. Good capillary refill. SKIN: No skin breakdown. Vital Signs (last 8hr) Date Time Temp Pulse Resp B/P (MAP) Pulse Ox O2 Delivery O2 Flow Rate FiO2 01/01/25 12:00 98.4 76 18 103/69 98 Room Air 21 01/01/25 08:00 96 Room Air* 0 21 01/01/25 08:00 98.1 78 18 113/78 96 Room Air 21 LABS: Laboratory: Test 01/01/25 04:16 12/31/24 22:19 12/31/24 20:14 Range/Units White Blood Count 12.9 H 4.8-10.8 K/uL Red Blood Count 4.09 4.00-5.50 MIL/uL Hemoglobin 11.3 L 12.0-16.0 g/dL Hematocrit 34.9 L 36-48 % Mean Corpuscular Volume 85.3 79-99 fL Mean Corpuscular Hemoglobin 27.6 27.0-33.0 pg Mean Corpuscular Hemoglobin Concent 32.4 32.0-36.0 g/dL Red Cell Distribution Width 12.1 11.0-15.5 % Platelet Count 228 130-400 K/uL Mean Platelet Volume 10.3 7.5-10.5 fL Nucleated Red Blood Cells 0.0 0.0-0.19 % Phosphorus Level 4.4 2.5-4.9 mg/dL Magnesium Level 1.90 1.80-2.40 mg/dL Thyroid Stimulating Hormone (TSH) 1.49 0.36-3.74 uIU/mL Urine Color COLORLESS YELLOW Urine Appearance CLEAR CLEAR Urine pH 7.0 5.0-8.0 Urine Specific [place] 1.039 H 1.001-1.031 Urine Protein NEGATIVE NEGATIVE mg/dL Urine Glucose (UA) NEGATIVE NEGATIVE mg/dL Urine Ketones 40 H NEGATIVE mg/dL Urine Occult Blood NEGATIVE NEGATIVE Urine Nitrate NEGATIVE NEGATIVE Urine Bilirubin NEGATIVE NEGATIVE mg/dL Urine Urobilinogen 0.2 0.2-1.0 mg/dL Urine Leukocyte Esterase 250 H NEGATIVE Bari/uL Urine RBC 0-1 0-1 /HPF Urine WBC 11-25 H 0-1 /HPF Urine Squamous Epithelial Cells RARE 0-2 /HPF Urine Bacteria None None Seen /HPF Immature Granulocyte % (Auto) 0.4 0-1 % Neutrophils (%) (Auto) 79.6 H 40.0-77.0 % Lymphocytes (%) (Auto) 13.2 L 21.0-51.0 % Monocytes (%) (Auto) 5.6 3.0-13.0 % Eosinophils (%) (Auto) 0.8 0.0-8.0 % Basophils (%) (Auto) 0.4 0.0-5.0 % Neutrophils # (Auto) 9.6 H 1.8-7.7 K/uL Lymphocytes # (Auto) 1.6 1.0-4.8 K/uL Monocytes # (Auto) 0.7 0.1-1.0 K/uL Eosinophils # (Auto) 0.10 0.00-0.70 K/uL Basophils # (Auto) 0.05 0.00-0.20 K/uL Absolute Immature Granulocyte (auto 0.05 0-1 K/uL Sodium Level 140 136-145 mmol/L Potassium Level 3.7 3.5-5.1 mmol/L Chloride Level 102 101-111 mmol/L Carbon Dioxide Level 29 21-32 mmol/L Blood Urea Nitrogen 4 L 7-18 mg/dL Creatinine 0.6 0.5-1.0 mg/dL Glomerular Filtration Rate Calc 125 >90 mL/min Random Glucose 107 H 70-105 mg/dL Total Calcium 9.4 8.5-10.1 mg/dL Total Bilirubin 0.3 0.2-1.0 mg/dL Direct Bilirubin 0.1 0.0-0.3 mg/dL Aspartate Amino Transf (AST/SGOT) 19 10-37 U/L Alanine Aminotransferase (ALT/SGPT) 20 12-78 U/L Alkaline Phosphatase 47 L 50-136 U/L Total Protein 7.8 6.0-8.3 g/dL Albumin 3.8 3.5-5.0 g/dL Lipase 26 16-77 U/L Serum Test, Qualitative NEGATIVE NEGATIVE Current Medications Medications (Trade) Dose Ordered Sig/Yannick Route PRN Reason Start Time Stop Time Status Last Admin Dose Admin Acetaminophen (TYLenol 325MG TAB) 650 mg Q6H PRN PO FEVER/MILD PAIN LEVEL 1-3 12/31/24 22:30 01/30/25 22:29 Acetaminophen (TYLenol 650MG SUPPOSITORY) 650 mg Q6H PRN RC FEVER / MILD PAIN 1-3 IF NPO 12/31/24 22:30 01/30/25 22:29 Docusate Sodium (COLace 100MG CAP) 100 mg BID PRN PO CONSTIPATION 12/31/24 22:30 01/30/25 22:29 Ketorolac Tromethamine (toRADol) 30 mg Q6H PRN IVP MODERATE PAIN (4-6) 12/31/24 22:30 01/05/25 22:29 01/01/25 03:37 30 MG Labetalol HCl (TRANdate 20MG SYG) 10 mg Q2H PRN IV SBP GREATER THAN 160 12/31/24 22:30 01/30/25 22:29 Lactated Ringer's 1,000 ml @ 100 mls/hr Q10H IV 12/31/24 22:30 01/30/25 22:29 01/01/25 09:10 100 MLS/HR Lactulose (Constulose 20gm/ 30ml Udcup) 20 gm Q6H PRN PO CONSTIPATION 12/31/24 22:30 01/30/25 22:29 Morphine Sulfate (morPHINE 2MG SYG) 2 mg Q4H PRN IVP SEVERE PAIN (7-10) 12/31/24 22:30 01/07/25 22:29 Ondansetron HCl (zoFRAN 4MG INJ) 4 mg Q6H PRN IVP NAUSEA/VOMITING 12/31/24 22:30 01/30/25 22:29 Piperacillin Sod/ Tazobactam Sod (Zosyn 3.375gm+NS 50ml) 3.375 gm Q8H IV 01/01/25 06:00 01/11/25 05:59 01/01/25 05:38 3.375 GM Temazepam (restORIL 15 MG CAP) 15 mg HS PRN PO INSOMNIA/SLEEP 12/31/24 22:30 01/30/25 22:29 DIAGNOSTICS / RADIOLOGY: [ ] ASSESSMENT: Acute cholecystitis, POA Acute complicated cystitis, POA Dehydration, POA Leukocytosis, POA Hyperglycemia without history of diabetes mellitus Ketonuria, POA Obesity, BNP 28.6 PLAN: Admit to medical floor. NPO for now. Continue Zosyn 3.375 IV q.8 hours. (1st dose of Zosyn was administered in ED) Continue with LR at 100 mL/hr. P.r.n. medications for: Pain management, fever, nausea, vomiting, constipation, hypertension. Consulted general surgeon We will follow up on urine culture. Antibiotics tailored to culture results. As needed glucometer sticks. Blood pressure checks every 4 hours and as needed. Monitor renal and liver function. Monitor electrolytes and treat accordingly. GI and DVT prophylaxis. A.m. labs. Case discussed with Dr. Yeboah, above plan was formulated ATTESTATION BY PHYSICIAN I have seen and examined the patient. I reviewed the documentation, medical decision making, and treatment plan as noted by the mid-level provider above. I agree with the findings and plan of care. GORDON YEBOAH MD, [facility] January 01, 2025 13:57
--- NOTE | 2025-01-01 18:12 | HMCIMG ---
ULTRASOUND ABDOMEN COMPLETE INDICATION: Abdominal Pain COMPARISON: None. FINDINGS: The liver is normal in size and increased in echogenicity; no focal lesion demonstrated. Main portal vein is patent, and normal direction of vascular flow demonstrated. The common bile duct caliber measures 5.0 mm. Multiple echogenic gallstones without associated pericholecystic fluid. No sonographic Pavon's sign elicited by the ultrasound oil recovery unit operator. Wall thickness measures 3.0 mm. The spleen is normal in size and echotexture. The spleen measures 10.0 cm. Visible portions of the pancreas appear unremarkable. The right kidney measures 11.8 x 4.4 x 4.3 cm,and is normal in echogenicity, without evidence for hydronephrosis or shadowing stones. The left kidney measures 10.5 x 4.7 x 3.4 cm,and is normal in echogenicity, without evidence for hydronephrosis or shadowing stones. Visible portions of the abdominal aorta are within normal limits. Visible portions of the inferior vena cava are within normal limits. No free fluid demonstrated. IMPRESSION: Cholelithiasis without gallstones. Findings suggesting hepatic steatosis.
[2025-01-02 04:09] VITALS: BP 98/43; PULSE 74; RESP 16; TEMP 98.3
[2025-01-02 04:59] LABS: HEMATOCRIT 35.7 % (36-48); MEAN CORPUSCULAR HEMOGLOBIN 27.5 pg (27.0-33.0); MEAN CORPUSCULAR HGB CONC 32.2 g/dL (32.0-36.0); MEAN CORPUSCULAR VOLUME 85.4 fL (79-99); RED BLOOD CELL COUNT(AUTO) 4.18 MIL/uL (4.00-5.50); RED CELL DISTRIBUTION WIDTH 12.1 % (11.0-15.5); WHITE BLOOD COUNT (AUTO) 10.7 K/uL (4.8-10.8)
[2025-01-02 05:12] LABS: CREATININE 0.7 mg/dL (0.5-1.0); POTASSIUM 3.9 mmol/L (3.5-5.1)
[2025-01-02 08:00] VITALS: BP 107/68; PULSE 88; RESP 18; TEMP 97.7; O2SAT 98
--- NOTE | 2025-01-02 11:43 | CONS ---
GENERAL SURGERY CONSULTATION NOTE Date/Time Patient Seen: [ 01/02/2025] Requesting Physician: [ Dr. Roscoe Lay] Reason for Consultation: [Suspected cholecystitis with cholelithiasis ] History of Present Illness: [Ms. Ross is a 29-year-old female who [place] [facility] of worsening right upper abdominal pain ongoing for five days. She reports also reports multiple episodes of nausea and vomiting. Patient states she was seen in this ED 1 week ago for the same problem but was told it was food poisoning and discharged home. Patient denied diarrhea, hematemesis or melena. ED workup done this time shows CT scan with possible acute cholecystitis, therefore patient was admitted to hospitalist. Ultrasound shows cholelithiasis, no pericholecystic fluid, gallbladder wall 0.3 and CBD 0.5. WBCs down trending to 10.7, normal LFTs on 12/31/2024 Past Medical History: [ none] Past Surgical History: [none] Family History: [ ] Social History: [ ] Habits: [Never] smoker. [Denies] alcohol consumption. [Denies] illicit drug use Current Medications Medications (Trade) Dose Ordered Sig/Yannick Route Start Time Stop Time Status Last Admin Dose Admin Lactated Ringer's 1,000 ml @ 100 mls/hr Q10H IV 12/31/24 22:30 01/30/25 22:29 01/02/25 06:37 100 MLS/HR Piperacillin Sod/ Tazobactam Sod (Zosyn 3.375gm+NS 50ml) 3.375 gm Q8H IV 01/01/25 06:00 01/11/25 05:59 01/02/25 06:37 3.375 GM Review of Systems: CONST: [No fever.] EYES: [No recent vision problems.] ENT: [No congestion, ear pain, or sore throat.] C/V: [No chest pain, palpitations, or edema.] RESP: [No cough, congestion, wheezing or shortness of breath.] GI: [RUQ abdominal pain, nausea, vomiting.] : [No dysuria.] SKIN: [No rash.] NEURO: [No headache, focal numbness or weakness.] Physical Examination: GENERAL: [No acute distress, female, comfortably resting in bed with parents at bedside.] HEAD: [Normocephalic.] EYES: [Nonicteric sclera.] ENT: [Hearing grossly intact.] NECK: [Supple.] LUNGS: [Clear breath sounds bilaterally.] HEART: [Normal rate and rhythm.] VASC: [Peripheral pulses +2 bilaterally.] ABD: [Bowel sounds normal, soft, mild RUQ tenderness, no guarding or rebound tenderness.] : [Not examined] EXT: [No edema.] SKIN: [No rashes or lesions noted.] NEURO: [Awake, alert, and oriented x3. No focal sensory or strength deficits noted.] Vital Signs (last 8hr) Date Time Temp Pulse Resp B/P (MAP) Pulse Ox O2 Delivery O2 Flow Rate FiO2 01/02/25 08:00 97.7 88 18 107/68 96 Room Air 21 01/02/25 08:00 98 Room Air* 0 21 01/02/25 04:09 98.2 74 16 98/43 100 Room Air Laboratory: [ ] Hematology Labs: Test 01/02/25 04:40 12/31/24 20:14 Range/Units White Blood Count 10.7 4.8-10.8 K/uL Red Blood Count 4.18 4.00-5.50 MIL/uL Hemoglobin 11.5 L 12.0-16.0 g/dL Hematocrit 35.7 L 36-48 % Mean Corpuscular Volume 85.4 79-99 fL Mean Corpuscular Hemoglobin 27.5 27.0-33.0 pg Mean Corpuscular Hemoglobin Concent 32.2 32.0-36.0 g/dL Red Cell Distribution Width 12.1 11.0-15.5 % Platelet Count 240 130-400 K/uL Mean Platelet Volume 10.4 7.5-10.5 fL Nucleated Red Blood Cells 0.0 0.0-0.19 % Immature Granulocyte % (Auto) 0.4 0-1 % Neutrophils (%) (Auto) 79.6 H 40.0-77.0 % Lymphocytes (%) (Auto) 13.2 L 21.0-51.0 % Monocytes (%) (Auto) 5.6 3.0-13.0 % Eosinophils (%) (Auto) 0.8 0.0-8.0 % Basophils (%) (Auto) 0.4 0.0-5.0 % Neutrophils # (Auto) 9.6 H 1.8-7.7 K/uL Lymphocytes # (Auto) 1.6 1.0-4.8 K/uL Monocytes # (Auto) 0.7 0.1-1.0 K/uL Eosinophils # (Auto) 0.10 0.00-0.70 K/uL Basophils # (Auto) 0.05 0.00-0.20 K/uL Absolute Immature Granulocyte (auto 0.05 0-1 K/uL Chemistry Labs: Test 01/02/25 04:40 01/01/25 04:16 12/31/24 20:14 Range/Units Sodium Level 139 136-145 mmol/L Potassium Level 3.9 3.5-5.1 mmol/L Chloride Level 101 101-111 mmol/L Carbon Dioxide Level 27 21-32 mmol/L Blood Urea Nitrogen 10 7-18 mg/dL Creatinine 0.7 0.5-1.0 mg/dL Glomerular Filtration Rate Calc 120 >90 mL/min Random Glucose 61 L 70-105 mg/dL Total Calcium 8.6 8.5-10.1 mg/dL Phosphorus Level 4.4 2.5-4.9 mg/dL Magnesium Level 1.90 1.80-2.40 mg/dL Thyroid Stimulating Hormone (TSH) 1.49 0.36-3.74 uIU/mL Total Bilirubin 0.3 0.2-1.0 mg/dL Direct Bilirubin 0.1 0.0-0.3 mg/dL Aspartate Amino Transf (AST/SGOT) 19 10-37 U/L Alanine Aminotransferase (ALT/SGPT) 20 12-78 U/L Alkaline Phosphatase 47 L 50-136 U/L Total Protein 7.8 6.0-8.3 g/dL Albumin 3.8 3.5-5.0 g/dL Lipase 26 16-77 U/L Serum Test, Qualitative NEGATIVE NEGATIVE Diagnostics / Radiology: [Copy/Paste Echos/Imaging Report here] Assessment: [Suspected cholecystitis with cholelithiasis ] Plan: [ Patient is scheduled for HIDA scan today Continue NPO until exam completed May start clear liquids after HIDA scan done If HIDA scan is positive, patient will be scheduled for cholecystectomy on this hospital admission, either Friday or Friday Continue with IV antibiotics Repeat labs in a.m. Surgical team will continue to follow Dr. Angelo updated on patient's status ] ATTESTATION BY PHYSICIAN I have seen and examined the patient. I reviewed the documentation, medical decision making, and treatment plan as noted by the mid-level provider above. I agree with the findings and plan of care. MD EAMON Cook LETICIA A [employer] PLAYER January 02, 2025 11:43
[2025-01-02 12:00] VITALS: BP 109/68; PULSE 74; RESP 18; TEMP 98.1
--- NOTE | 2025-01-02 12:44 | HMCIMG ---
HEPATOBILIARY SCAN INDICATION: Right upper abdominal pain COMPARISON: None RADIOPHARMACEUTICAL: Tc99m Choletec DOSE: 6.5 mCi given IV. TECHNIQUE: Abdominal functional images were obtained and submitted for interpretation. FINDINGS: Functional images obtained up to 120 minutes showed normal hepato-intestinal transit time, but no accumulation of activity within the gallbladder within normal limits. IMPRESSION: Findings suggest an cholecystitis.
--- NOTE | 2025-01-02 12:59 | PN ---
[facility] PROGRESS NOTE Date of Service: January 02, 2025 Time of Service: 12:53 SUBJECTIVE: [29-year-old female admitted due to ongoing abdominal pain for five days associated with nausea and vomiting. In the ER, a CT abdomen and pelvis was done which suggested acute cholecystitis. Patient is currently NPO and on IV fluids with IV antibiotics. We appreciate general surgeon recommendation, HIDA scan came back cholecystitis. But surgeon indicated possible intervention either Friday or Friday. Patient may have clear liquid diet per surgeon REVIEW OF SYSTEMS 12-point ROS reviewed with the patient. All pertinent positives mentioned above. Otherwise negative, noncontributory, non-pertinent. PHYSICAL EXAM GENERAL APPEARANCE: The patient is awake, alert, and oriented, in no acute cardiopulmonary distress. NEUROLOGICAL: Cranial nerves II-XII grossly intact. Motor is 5/5 in bilateral upper and lower extremities proximal to distal. No sensory deficits. HEENT: Face is symmetric. Pupils are equal and reactive. Extraocular movements are intact. NECK: Supple. No JVD. No thyromegaly. No submental, submandibular, pre- /postauricular, occipital or supraclavicular lymphadenopathy. CHEST: Normal chest expansion. No Telemetry. LUNGS: Absence of any rales, rhonchi or any wheezing. CARDIOVASCULAR: Regular. S1 and S2 normal. No appreciable rubs, murmurs or gallops. ABDOMEN: Obese. Upper abdominal tenderness. Soft and nondistended. There is no rebound, voluntary guarding, or rigidity. : Deferred. No Wren. EXTREMITIES: Non-edematous and not cyanotic. No clubbing. Good capillary r efill. SKIN: No skin breakdown. Vital Signs (last 8hr) Date Time Temp Pulse Resp B/P (MAP) Pulse Ox O2 Delivery O2 Flow Rate FiO2 01/02/25 12:00 98.1 74 18 109/68 95 Room Air 21 01/02/25 08:00 97.7 88 18 107/68 96 Room Air 21 01/02/25 08:00 98 Room Air* 0 21 LABS: Laboratory: Test 01/02/25 04:40 01/01/25 04:16 12/31/24 22:19 12/31/24 20:14 Range/Units White Blood Count 10.7 4.8-10.8 K/uL Red Blood Count 4.18 4.00-5.50 MIL/uL Hemoglobin 11.5 L 12.0-16.0 g/dL Hematocrit 35.7 L 36-48 % Mean Corpuscular Volume 85.4 79-99 fL Mean Corpuscular Hemoglobin 27.5 27.0-33.0 pg Mean Corpuscular Hemoglobin Concent 32.2 32.0-36.0 g/dL Red Cell Distribution Width 12.1 11.0-15.5 % Platelet Count 240 130-400 K/uL Mean Platelet Volume 10.4 7.5-10.5 fL Nucleated Red Blood Cells 0.0 0.0-0.19 % Sodium Level 139 136-145 mmol/L Potassium Level 3.9 3.5-5.1 mmol/L Chloride Level 101 101-111 mmol/L Carbon Dioxide Level 27 21-32 mmol/L Blood Urea Nitrogen 10 7-18 mg/dL Creatinine 0.7 0.5-1.0 mg/dL Glomerular Filtration Rate Calc 120 >90 mL/min Random Glucose 61 L 70-105 mg/dL Total Calcium 8.6 8.5-10.1 mg/dL Phosphorus Level 4.4 2.5-4.9 mg/dL Magnesium Level 1.90 1.80-2.40 mg/dL Thyroid Stimulating Hormone (TSH) 1.49 0.36-3.74 uIU/mL Urine Color COLORLESS YELLOW Urine Appearance CLEAR CLEAR Urine pH 7.0 5.0-8.0 Urine Specific [place] 1.039 H 1.001-1.031 Urine Protein NEGATIVE NEGATIVE mg/dL Urine Glucose (UA) NEGATIVE NEGATIVE mg/dL Urine Ketones 40 H NEGATIVE mg/dL Urine Occult Blood NEGATIVE NEGATIVE Urine Nitrate NEGATIVE NEGATIVE Urine Bilirubin NEGATIVE NEGATIVE mg/dL Urine Urobilinogen 0.2 0.2-1.0 mg/dL Urine Leukocyte Esterase 250 H NEGATIVE Bari/uL Urine RBC 0-1 0-1 /HPF Urine WBC 11-25 H 0-1 /HPF Urine Squamous Epithelial Cells RARE 0-2 /HPF Urine Bacteria None None Seen /HPF Immature Granulocyte % (Auto) 0.4 0-1 % Neutrophils (%) (Auto) 79.6 H 40.0-77.0 % Lymphocytes (%) (Auto) 13.2 L 21.0-51.0 % Monocytes (%) (Auto) 5.6 3.0-13.0 % Eosinophils (%) (Auto) 0.8 0.0-8.0 % Basophils (%) (Auto) 0.4 0.0-5.0 % Neutrophils # (Auto) 9.6 H 1.8-7.7 K/uL Lymphocytes # (Auto) 1.6 1.0-4.8 K/uL Monocytes # (Auto) 0.7 0.1-1.0 K/uL Eosinophils # (Auto) 0.10 0.00-0.70 K/uL Basophils # (Auto) 0.05 0.00-0.20 K/uL Absolute Immature Granulocyte (auto 0.05 0-1 K/uL Total Bilirubin 0.3 0.2-1.0 mg/dL Direct Bilirubin 0.1 0.0-0.3 mg/dL Aspartate Amino Transf (AST/SGOT) 19 10-37 U/L Alanine Aminotransferase (ALT/SGPT) 20 12-78 U/L Alkaline Phosphatase 47 L 50-136 U/L Total Protein 7.8 6.0-8.3 g/dL Albumin 3.8 3.5-5.0 g/dL Lipase 26 16-77 U/L Serum Test, Qualitative NEGATIVE NEGATIVE Current Medications Medications (Trade) Dose Ordered Sig/Yannick Route PRN Reason Start Time Stop Time Status Last Admin Dose Admin Acetaminophen (TYLenol 325MG TAB) 650 mg Q6H PRN PO FEVER/MILD PAIN LEVEL 1-3 12/31/24 22:30 01/30/25 22:29 Acetaminophen (TYLenol 650MG SUPPOSITORY) 650 mg Q6H PRN RC FEVER / MILD PAIN 1-3 IF NPO 12/31/24 22:30 01/30/25 22:29 Docusate Sodium (COLace 100MG CAP) 100 mg BID PRN PO CONSTIPATION 12/31/24 22:30 01/30/25 22:29 Ketorolac Tromethamine (toRADol) 30 mg Q6H PRN IVP MODERATE PAIN (4-6) 12/31/24 22:30 01/05/25 22:29 01/01/25 03:37 30 MG Labetalol HCl (TRANdate 20MG SYG) 10 mg Q2H PRN IV SBP GREATER THAN 160 12/31/24 22:30 01/30/25 22:29 Lactated Ringer's 1,000 ml @ 100 mls/hr Q10H IV 12/31/24 22:30 01/30/25 22:29 01/02/25 06:37 100 MLS/HR Lactulose (Constulose 20gm/ 30ml Udcup) 20 gm Q6H PRN PO CONSTIPATION 12/31/24 22:30 01/30/25 22:29 Morphine Sulfate (morPHINE 2MG SYG) 2 mg Q4H PRN IVP SEVERE PAIN (7-10) 12/31/24 22:30 01/07/25 22:29 Ondansetron HCl (zoFRAN 4MG INJ) 4 mg Q6H PRN IVP NAUSEA/VOMITING 12/31/24 22:30 01/30/25 22:29 Piperacillin Sod/ Tazobactam Sod (Zosyn 3.375gm+NS 50ml) 3.375 gm Q8H IV 01/01/25 06:00 01/11/25 05:59 01/02/25 06:37 3.375 GM Temazepam (restORIL 15 MG CAP) 15 mg HS PRN PO INSOMNIA/SLEEP 12/31/24 22:30 01/30/25 22:29 DIAGNOSTICS / RADIOLOGY: [ ] ASSESSMENT: Acute cholecystitis, POA Acute complicated cystitis, POA Dehydration, POA Leukocytosis, POA Hyperglycemia without history of diabetes mellitus Ketonuria, POA Obesity, BNP 28.6 PLAN: Admit to medical floor. HIDA scan done, showed cholecystitis Appreciate General surgeon, plans for cholecystectomy on Friday or Friday Continue Zosyn 3.375 IV q.8 hours. (1st dose of Zosyn was administered in ED) Continue with LR at 100 mL/hr. P.r.n. medications for: Pain management, fever, nausea, vomiting, constipation, hypertension. Consulted general surgeon We will follow up on urine culture. Antibiotics tailored to culture results. As needed glucometer sticks. Blood pressure checks every 4 hours and as needed. Monitor renal and liver function. Monitor electrolytes and treat accordingly. GI and DVT prophylaxis. A.m. labs. Case discussed with Dr. Yeboah, above plan was formulated ATTESTATION BY PHYSICIAN I have seen and examined the patient. I reviewed the documentation, medical decision making, and treatment plan as noted by the mid-level provider above. I agree with the findings and plan of care. GORDON YEBOAH MD, JANICE B [facility] January 02, 2025 12:59
[2025-01-02 15:59] VITALS: BP 109/71; PULSE 98; RESP 18; TEMP 98.7
[2025-01-02 19:25] VITALS: O2SAT 100
[2025-01-02 20:00] VITALS: BP 106/73; PULSE 83; RESP 20; TEMP 98.2
[2025-01-03] VITALS (7 sets, daily range): BP systolic 95–122; BP diastolic 62–79; PULSE 67–90; RESP 16–20; TEMP 98–98.5; O2SAT 97–100
[2025-01-03 04:26] LABS: BASOPHILS # (AUTO) 0.05 K/uL (0.00-0.20); BASOPHILS % (AUTO) 0.5 % (0.0-5.0); EOSINOPHILS % (AUTO) 1.9 % (0.0-8.0); HEMATOCRIT 35.3 % (36-48); IMMATURE GRANULOCYTE ABSOLUTE 0.03 K/uL (0-1); LYMPHOCYTES # (AUTO) 1.9 K/uL (1.0-4.8); LYMPHOCYTES % (AUTO) 18.2 % (21.0-51.0); MEAN CORPUSCULAR HEMOGLOBIN 27.8 pg (27.0-33.0); MEAN CORPUSCULAR HGB CONC 32.6 g/dL (32.0-36.0); MEAN CORPUSCULAR VOLUME 85.3 fL (79-99); MONOCYTES # (AUTO) 0.8 K/uL (0.1-1.0); MONOCYTES % (AUTO) 7.9 % (3.0-13.0); NEUTROPHILS # (AUTO) 7.3 K/uL (1.8-7.7); NEUTROPHILS % (AUTO) 71.2 % (40.0-77.0); PLATELET COUNT (AUTO) 224 K/uL (130-400); RED BLOOD CELL COUNT(AUTO) 4.14 MIL/uL (4.00-5.50); RED CELL DISTRIBUTION WIDTH 12.2 % (11.0-15.5); WHITE BLOOD COUNT (AUTO) 10.3 K/uL (4.8-10.8)
[2025-01-03 04:43] LABS: ALBUMIN 3.1 g/dL (3.5-5.0); BILIRUBIN,TOTAL 0.5 mg/dL (0.2-1.0); CREATININE 0.6 mg/dL (0.5-1.0); POTASSIUM 3.9 mmol/L (3.5-5.1); TOTAL PROTEIN, SERUM 7.1 g/dL (6.0-8.3)
--- NOTE | 2025-01-03 10:56 | PN ---
GENERAL SURGERY PROGRESS NOTE Date/Time Patient Seen: 01/03/2025 9:15 a.m. Problem List: Acute cholecystitis Interval History: Patient has no abdominal pain. She is tolerating clear liquids. She is ambulating. Current Medications Medications (Trade) Dose Ordered Sig/Yannick Route Start Time Stop Time Status Last Admin Dose Admin Lactated Ringer's 1,000 ml @ 100 mls/hr Q10H IV 12/31/24 22:30 01/30/25 22:29 01/03/25 05:54 100 MLS/HR Piperacillin Sod/ Tazobactam Sod (Zosyn 3.375gm+NS 50ml) 3.375 gm Q8H IV 01/01/25 06:00 01/11/25 05:59 01/03/25 05:48 3.375 GM Physical Examination: GENERAL: No acute distress. HEAD: Normal with no signs of head trauma. LUNGS: Respirations nonlabored HEART: Regular rate and rhythm ABD: Soft, nondistended, nontender, no rebound, no guarding : Not examined LYMPH: No lymphadenopathy noted. EXT: No clubbing, cyanosis or edema. SKIN: No rashes or lesions noted. NEURO: Awake, alert, and oriented x3. No focal sensory or strength deficits noted. Vital Signs (last 8hr) Date Time Temp Pulse Resp B/P (MAP) Pulse Ox O2 Delivery O2 Flow Rate FiO2 01/03/25 08:00 98.2 85 19 112/65 100 Room Air 01/03/25 04:00 98.4 67 16 95/62 97 Room Air Laboratory: Hematology Labs: Test 01/03/25 04:10 Range/Units White Blood Count 10.3 4.8-10.8 K/uL Red Blood Count 4.14 4.00-5.50 MIL/uL Hemoglobin 11.5 L 12.0-16.0 g/dL Hematocrit 35.3 L 36-48 % Mean Corpuscular Volume 85.3 79-99 fL Mean Corpuscular Hemoglobin 27.8 27.0-33.0 pg Mean Corpuscular Hemoglobin Concent 32.6 32.0-36.0 g/dL Red Cell Distribution Width 12.2 11.0-15.5 % Platelet Count 224 130-400 K/uL Mean Platelet Volume 10.2 7.5-10.5 fL Immature Granulocyte % (Auto) 0.3 0-1 % Neutrophils (%) (Auto) 71.2 40.0-77.0 % Lymphocytes (%) (Auto) 18.2 L 21.0-51.0 % Monocytes (%) (Auto) 7.9 3.0-13.0 % Eosinophils (%) (Auto) 1.9 0.0-8.0 % Basophils (%) (Auto) 0.5 0.0-5.0 % Neutrophils # (Auto) 7.3 1.8-7.7 K/uL Lymphocytes # (Auto) 1.9 1.0-4.8 K/uL Monocytes # (Auto) 0.8 0.1-1.0 K/uL Eosinophils # (Auto) 0.20 0.00-0.70 K/uL Basophils # (Auto) 0.05 0.00-0.20 K/uL Absolute Immature Granulocyte (auto 0.03 0-1 K/uL Nucleated Red Blood Cells 0.0 0.0-0.19 % Chemistry Labs: Test 01/03/25 04:10 Range/Units Sodium Level 140 136-145 mmol/L Potassium Level 3.9 3.5-5.1 mmol/L Chloride Level 104 101-111 mmol/L Carbon Dioxide Level 24 21-32 mmol/L Blood Urea Nitrogen 6 L 7-18 mg/dL Creatinine 0.6 0.5-1.0 mg/dL Glomerular Filtration Rate Calc 125 >90 mL/min Random Glucose 81 70-105 mg/dL Total Calcium 8.6 8.5-10.1 mg/dL Total Bilirubin 0.5 0.2-1.0 mg/dL Aspartate Amino Transf (AST/SGOT) 15 10-37 U/L Alanine Aminotransferase (ALT/SGPT) 21 12-78 U/L Alkaline Phosphatase 39 L 50-136 U/L Total Protein 7.1 6.0-8.3 g/dL Albumin 3.1 L 3.5-5.0 g/dL Diagnostics / Radiology: PATIENT: MONICA SMITH MR#: [id number] : 1995 SEX: F AGE: 29 LOCATION: [facility] ORDER [id number] STATUS: ADM IN REPORT#: [id number] SERVICE [id number] REASON: cholecystitis ORDERING PHYSICIAN: NANCI ANGELO MD PROCEDURE: HIDA EF - NM HIDA WITH EF/CCK HEPATOBILIARY SCAN INDICATION: Right upper abdominal pain COMPARISON: None RADIOPHARMACEUTICAL: Tc99m Choletec DOSE: 6.5 mCi given IV. TECHNIQUE: Abdominal functional images were obtained and submitted for interpretation. FINDINGS: Functional images obtained up to 120 minutes showed normal hepato-intestinal transit time, but no accumulation of activity within the gallbladder within normal limits. IMPRESSION: Findings suggest an cholecystitis. DICTATED BY: AZAEL CASTREJON MD DATE: 01/02/25 124 ELECTRONICALLY SIGNED BY: AZAEL CASTREJON MD DATE: 01/02/25 1240 Impression and Plan: This is a 29-year-old female with right upper quadrant abdominal pain and HIDA scan showing likely cystic duct obstruction. Dr. Jordan plan was for cholecystectomy due to acute cholecystitis. The pathophysiology of biliary disease was discussed with the patient as well as the surgery. All questions were answered. Patient expressed understanding and agreement with plan. Dr. Angelo will be performing the surgery tomorrow morning. NPO at midnight. BUBBA SINGH DO January 03, 2025 10:56
--- NOTE | 2025-01-03 15:50 | PN ---
[facility] PROGRESS NOTE Date of Service: January 03, 2025 Time of Service: 15:48 Attending doctor Eulalio SUBJECTIVE: [01/02 29-year-old female admitted due to ongoing abdominal pain for five days associated with nausea and vomiting. In the ER, a CT abdomen and pelvis was done which suggested acute cholecystitis. Patient is currently NPO and on IV fluids with IV antibiotics. We appreciate general surgeon recommendation, HIDA scan came back cholecystitis. But surgeon indicated possible intervention either Friday or Friday. Patient may have clear liquid diet per surgeon 01/03 patient was seen by nurse practitioner and physician during rounding in room 418. Patient is urinalysis was positive for leukocytosis. Urine culture was contaminated. WBC 10.3. Patient continues to be on Zosyn. HIDA scan showed cholecystitis. Patient is pending cholecystectomy tomorrow 01/04/[address] Angelo. We will continue to monitor patient in the meantime. A.m. labs REVIEW OF SYSTEMS 12-point ROS reviewed with the patient. All pertinent positives mentioned above. Otherwise negative, noncontributory, non-pertinent. PHYSICAL EXAM GENERAL APPEARANCE: The patient is awake, alert, and oriented, in no acute cardiopulmonary distress. NEUROLOGICAL: Cranial nerves II-XII grossly intact. Motor is 5/5 in bilateral upper and lower extremities proximal to distal. No sensory deficits. HEENT: Face is symmetric. Pupils are equal and reactive. Extraocular movements are intact. NECK: Supple. No JVD. No thyromegaly. No submental, submandibular, pre- /postauricular, occipital or supraclavicular lymphadenopathy. CHEST: Normal chest expansion. No Telemetry. LUNGS: Absence of any rales, rhonchi or any wheezing. CARDIOVASCULAR: Regular. S1 and S2 normal. No appreciable rubs, murmurs or gallops. ABDOMEN: Obese. Upper abdominal tenderness. Soft and nondistended. There is no rebound, voluntary guarding, or rigidity. : Deferred. No Wren. EXTREMITIES: Non-edematous and not cyanotic. No clubbing. Good capillary refill. SKIN: No skin breakdown. Vital Signs (last 8hr) Date Time Temp Pulse Resp B/P (MAP) Pulse Ox O2 Delivery O2 Flow Rate FiO2 01/03/25 11:57 98.1 76 19 110/79 100 Room Air 01/03/25 08:00 100 Room Air* 0 21 01/03/25 08:00 98.2 85 19 112/65 100 Room Air LABS: Laboratory: Test 01/03/25 04:10 Range/Units White Blood Count 10.3 4.8-10.8 K/uL Red Blood Count 4.14 4.00-5.50 MIL/uL Hemoglobin 11.5 L 12.0-16.0 g/dL Hematocrit 35.3 L 36-48 % Mean Corpuscular Volume 85.3 79-99 fL Mean Corpuscular Hemoglobin 27.8 27.0-33.0 pg Mean Corpuscular Hemoglobin Concent 32.6 32.0-36.0 g/dL Red Cell Distribution Width 12.2 11.0-15.5 % Platelet Count 224 130-400 K/uL Mean Platelet Volume 10.2 7.5-10.5 fL Immature Granulocyte % (Auto) 0.3 0-1 % Neutrophils (%) (Auto) 71.2 40.0-77.0 % Lymphocytes (%) (Auto) 18.2 L 21.0-51.0 % Monocytes (%) (Auto) 7.9 3.0-13.0 % Eosinophils (%) (Auto) 1.9 0.0-8.0 % Basophils (%) (Auto) 0.5 0.0-5.0 % Neutrophils # (Auto) 7.3 1.8-7.7 K/uL Lymphocytes # (Auto) 1.9 1.0-4.8 K/uL Monocytes # (Auto) 0.8 0.1-1.0 K/uL Eosinophils # (Auto) 0.20 0.00-0.70 K/uL Basophils # (Auto) 0.05 0.00-0.20 K/uL Absolute Immature Granulocyte (auto 0.03 0-1 K/uL Nucleated Red Blood Cells 0.0 0.0-0.19 % Sodium Level 140 136-145 mmol/L Potassium Level 3.9 3.5-5.1 mmol/L Chloride Level 104 101-111 mmol/L Carbon Dioxide Level 24 21-32 mmol/L Blood Urea Nitrogen 6 L 7-18 mg/dL Creatinine 0.6 0.5-1.0 mg/dL Glomerular Filtration Rate Calc 125 >90 mL/min Random Glucose 81 70-105 mg/dL Total Calcium 8.6 8.5-10.1 mg/dL Total Bilirubin 0.5 0.2-1.0 mg/dL Aspartate Amino Transf (AST/SGOT) 15 10-37 U/L Alanine Aminotransferase (ALT/SGPT) 21 12-78 U/L Alkaline Phosphatase 39 L 50-136 U/L Total Protein 7.1 6.0-8.3 g/dL Albumin 3.1 L 3.5-5.0 g/dL Current Medications Medications (Trade) Dose Ordered Sig/Yannick Route PRN Reason Start Time Stop Time Status Last Admin Dose Admin Acetaminophen (TYLenol 325MG TAB) 650 mg Q6H PRN PO FEVER/MILD PAIN LEVEL 1-3 12/31/24 22:30 01/30/25 22:29 Acetaminophen (TYLenol 650MG SUPPOSITORY) 650 mg Q6H PRN RC FEVER / MILD PAIN 1-3 IF NPO 12/31/24 22:30 01/30/25 22:29 Docusate Sodium (COLace 100MG CAP) 100 mg BID PRN PO CONSTIPATION 12/31/24 22:30 01/30/25 22:29 Ketorolac Tromethamine (toRADol) 30 mg Q6H PRN IVP MODERATE PAIN (4-6) 12/31/24 22:30 01/05/25 22:29 01/01/25 03:37 30 MG Labetalol HCl (TRANdate 20MG SYG) 10 mg Q2H PRN IV SBP GREATER THAN 160 12/31/24 22:30 01/30/25 22:29 Lactated Ringer's 1,000 ml @ 100 mls/hr Q10H IV 12/31/24 22:30 01/30/25 22:29 01/03/25 05:54 100 MLS/HR Lactulose (Constulose 20gm/ 30ml Udcup) 20 gm Q6H PRN PO CONSTIPATION 12/31/24 22:30 01/30/25 22:29 Morphine Sulfate (morPHINE 2MG SYG) 2 mg Q4H PRN IVP SEVERE PAIN (7-10) 12/31/24 22:30 01/07/25 22:29 Ondansetron HCl (zoFRAN 4MG INJ) 4 mg Q6H PRN IVP NAUSEA/VOMITING 12/31/24 22:30 01/30/25 22:29 Piperacillin Sod/ Tazobactam Sod (Zosyn 3.375gm+NS 50ml) 3.375 gm Q8H IV 01/01/25 06:00 01/11/25 05:59 01/03/25 14:58 3.375 GM Temazepam (restORIL 15 MG CAP) 15 mg HS PRN PO INSOMNIA/SLEEP 12/31/24 22:30 01/30/25 22:29 DIAGNOSTICS / RADIOLOGY: [ ] ASSESSMENT: Acute cholecystitis, POA Acute complicated cystitis, POA Dehydration, POA Leukocytosis, POA Hyperglycemia without history of diabetes mellitus Ketonuria, POA Obesity, BNP 28.6 PLAN: Admit to medical floor. HIDA scan done, showed cholecystitis Patient pending cholecystectomy 01/04/[address] Angelo Continue Zosyn 3.375 IV q.8 hours. Continue with LR at 100 mL/hr. Continue PRN meds Urine culture contaminated As needed glucometer sticks. Blood pressure checks every 4 hours and as needed. Monitor renal and liver function. Monitor electrolytes and treat accordingly. GI and DVT prophylaxis. A.m. labs. ATTESTATION BY PHYSICIAN I have seen and examined the patient. I reviewed the documentation, medical decision making, and treatment plan as noted by the mid-level provider above. I agree with the findings and plan of care. VERONIQUE Wills MD [employer] January 03, 2025 15:50
[2025-01-04] VITALS (27 sets, daily range): BP systolic 94–114; BP diastolic 48–77; PULSE 67–102; RESP 17–23; TEMP 97.5–99.1; O2SAT 98–100
[2025-01-04 03:38] LABS: BASOPHILS # (AUTO) 0.05 K/uL (0.00-0.20); BASOPHILS % (AUTO) 0.5 % (0.0-5.0); EOSINOPHILS # (AUTO) 0.26 K/uL (0.00-0.70); EOSINOPHILS % (AUTO) 2.5 % (0.0-8.0); IMMATURE GRANULOCYTE ABSOLUTE 0.04 K/uL (0-1); LYMPHOCYTES # (AUTO) 2.3 K/uL (1.0-4.8); LYMPHOCYTES % (AUTO) 21.7 % (21.0-51.0); MEAN CORPUSCULAR HEMOGLOBIN 27.5 pg (27.0-33.0); MEAN CORPUSCULAR HGB CONC 32.2 g/dL (32.0-36.0); MEAN CORPUSCULAR VOLUME 85.3 fL (79-99); MONOCYTES # (AUTO) 0.9 K/uL (0.1-1.0); MONOCYTES % (AUTO) 8.2 % (3.0-13.0); NEUTROPHILS # (AUTO) 7.1 K/uL (1.8-7.7); NEUTROPHILS % (AUTO) 66.7 % (40.0-77.0); PLATELET COUNT (AUTO) 235 K/uL (130-400); RED BLOOD CELL COUNT(AUTO) 4.22 MIL/uL (4.00-5.50); RED CELL DISTRIBUTION WIDTH 12.1 % (11.0-15.5); WHITE BLOOD COUNT (AUTO) 10.6 K/uL (4.8-10.8)
[2025-01-04 03:52] LABS: INR 1.08 (0.85-1.15); PROTHROMBIN TIME 11.4 SEC (9.6-11.6)
[2025-01-04 03:54] LABS: ALBUMIN 3.1 g/dL (3.5-5.0); BILIRUBIN,TOTAL 0.4 mg/dL (0.2-1.0); CREATININE 0.5 mg/dL (0.5-1.0); MAGNESIUM 1.8 mg/dL (1.80-2.40); PARTIAL THROMBOPLASTIN TIME 34.5 SEC (26.3-35.5); POTASSIUM 3.5 mmol/L (3.5-5.1); TOTAL PROTEIN, SERUM 7.1 g/dL (6.0-8.3)
--- NOTE | 2025-01-04 09:07 | PN ---
[facility] PROGRESS NOTE Date of Service: January 04, 2025 Time of Service: 09:04 Attending doctor Eulalio SUBJECTIVE: [01/02 29-year-old female admitted due to ongoing abdominal pain for five days associated with nausea and vomiting. In the ER, a CT abdomen and pelvis was done which suggested acute cholecystitis. Patient is currently NPO and on IV fluids with IV antibiotics. We appreciate general surgeon recommendation, HIDA scan came back cholecystitis. But surgeon indicated possible intervention either Friday or Friday. Patient may have clear liquid diet per surgeon 01/03 patient was seen by nurse practitioner and physician during rounding in room 418. Patient is urinalysis was positive for leukocytosis. Urine culture was contaminated. WBC 10.3. Patient continues to be on Zosyn. HIDA scan showed cholecystitis. Patient is pending cholecystectomy tomorrow 01/04/[address] Angelo. We will continue to monitor patient in the meantime. A.m. labs 01/04 patient was seen by nurse practitioner and physician. Patient is pending cholecystectomy today with Dr. Angelo. Patient received 60 mEq of potassium after surgery POA as requested by the patient as well as magnesium 2 g at night. Anticipated discharge within 24 hours. We will continue to monitor patient in the meantime. A.m. labs REVIEW OF SYSTEMS 12-point ROS reviewed with the patient. All pertinent positives mentioned above. Otherwise negative, noncontributory, non-pertinent. PHYSICAL EXAM GENERAL APPEARANCE: The patient is awake, alert, and oriented, in no acute cardiopulmonary distress. NEUROLOGICAL: Cranial nerves II-XII grossly intact. Motor is 5/5 in bilateral upper and lower extremities proximal to distal. No sensory deficits. HEENT: Face is symmetric. Pupils are equal and reactive. Extraocular movements are intact. NECK: Supple. No JVD. No thyromegaly. No submental, submandibular, pre- /postauricular, occipital or supraclavicular lymphadenopathy. CHEST: Normal chest expansion. No Telemetry. LUNGS: Absence of any rales, rhonchi or any wheezing. CARDIOVASCULAR: Regular. S1 and S2 normal. No appreciable rubs, murmurs or gallops. ABDOMEN: Obese. Upper abdominal tenderness. Soft and nondistended. There is no rebound, voluntary guarding, or rigidity. : Deferred. No Wren. EXTREMITIES: Non-edematous and not cyanotic. No clubbing. Good capillary refill. SKIN: No skin breakdown. Vital Signs (last 8hr) Date Time Temp Pulse Resp B/P (MAP) Pulse Ox O2 Delivery O2 Flow Rate FiO2 01/04/25 08:00 99.1 71 19 110/73 100 Room Air 01/04/25 04:50 98.2 69 17 99/60 100 Room Air LABS: Laboratory: Test 01/04/25 03:09 Range/Units White Blood Count 10.6 4.8-10.8 K/uL Red Blood Count 4.22 4.00-5.50 MIL/uL Hemoglobin 11.6 L 12.0-16.0 g/dL Hematocrit 36.0 36-48 % Mean Corpuscular Volume 85.3 79-99 fL Mean Corpuscular Hemoglobin 27.5 27.0-33.0 pg Mean Corpuscular Hemoglobin Concent 32.2 32.0-36.0 g/dL Red Cell Distribution Width 12.1 11.0-15.5 % Platelet Count 235 130-400 K/uL Mean Platelet Volume 10.3 7.5-10.5 fL Immature Granulocyte % (Auto) 0.4 0-1 % Neutrophils (%) (Auto) 66.7 40.0-77.0 % Lymphocytes (%) (Auto) 21.7 21.0-51.0 % Monocytes (%) (Auto) 8.2 3.0-13.0 % Eosinophils (%) (Auto) 2.5 0.0-8.0 % Basophils (%) (Auto) 0.5 0.0-5.0 % Neutrophils # (Auto) 7.1 1.8-7.7 K/uL Lymphocytes # (Auto) 2.3 1.0-4.8 K/uL Monocytes # (Auto) 0.9 0.1-1.0 K/uL Eosinophils # (Auto) 0.26 0.00-0.70 K/uL Basophils # (Auto) 0.05 0.00-0.20 K/uL Absolute Immature Granulocyte (auto 0.04 0-1 K/uL Nucleated Red Blood Cells 0.0 0.0-0.19 % Prothrombin Time 11.4 9.6-11.6 SEC Prothromb Time International Ratio 1.08 0.85-1.15 Activated Partial Thromboplast Time 34.5 26.3-35.5 SEC Sodium Level 142 136-145 mmol/L Potassium Level 3.5 3.5-5.1 mmol/L Chloride Level 105 101-111 mmol/L Carbon Dioxide Level 26 21-32 mmol/L Blood Urea Nitrogen 5 L 7-18 mg/dL Creatinine 0.5 0.5-1.0 mg/dL Glomerular Filtration Rate Calc 130 >90 mL/min Random Glucose 77 70-105 mg/dL Total Calcium 8.7 8.5-10.1 mg/dL Magnesium Level 1.80 1.80-2.40 mg/dL Total Bilirubin 0.4 0.2-1.0 mg/dL Aspartate Amino Transf (AST/SGOT) 15 10-37 U/L Alanine Aminotransferase (ALT/SGPT) 16 # 12-78 U/L Alkaline Phosphatase 39 L 50-136 U/L Total Protein 7.1 6.0-8.3 g/dL Albumin 3.1 L 3.5-5.0 g/dL Current Medications Medications (Trade) Dose Ordered Sig/Yannick Route PRN Reason Start Time Stop Time Status Last Admin Dose Admin Acetaminophen (TYLenol 325MG TAB) 650 mg Q6H PRN PO FEVER/MILD PAIN LEVEL 1-3 12/31/24 22:30 01/30/25 22:29 Acetaminophen (TYLenol 650MG SUPPOSITORY) 650 mg Q6H PRN RC FEVER / MILD PAIN 1-3 IF NPO 12/31/24 22:30 01/30/25 22:29 Docusate Sodium (COLace 100MG CAP) 100 mg BID PRN PO CONSTIPATION 12/31/24 22:30 01/30/25 22:29 Ketorolac Tromethamine (toRADol) 30 mg Q6H PRN IVP MODERATE PAIN (4-6) 12/31/24 22:30 01/05/25 22:29 01/01/25 03:37 30 MG Labetalol HCl (TRANdate 20MG SYG) 10 mg Q2H PRN IV SBP GREATER THAN 160 12/31/24 22:30 01/30/25 22:29 Lactated Ringer's 1,000 ml @ 100 mls/hr Q10H IV 12/31/24 22:30 01/30/25 22:29 01/03/25 20:45 100 MLS/HR Lactulose (Constulose 20gm/ 30ml Udcup) 20 gm Q6H PRN PO CONSTIPATION 12/31/24 22:30 01/30/25 22:29 Morphine Sulfate (morPHINE 2MG SYG) 2 mg Q4H PRN IVP SEVERE PAIN (7-10) 12/31/24 22:30 01/07/25 22:29 Ondansetron HCl (zoFRAN 4MG INJ) 4 mg Q6H PRN IVP NAUSEA/VOMITING 12/31/24 22:30 01/30/25 22:29 Piperacillin Sod/ Tazobactam Sod (Zosyn 3.375gm+NS 50ml) 3.375 gm Q8H IV 01/01/25 06:00 01/11/25 05:59 01/04/25 05:48 3.375 GM Temazepam (restORIL 15 MG CAP) 15 mg HS PRN PO INSOMNIA/SLEEP 12/31/24 22:30 01/30/25 22:29 DIAGNOSTICS / RADIOLOGY: [ ] ASSESSMENT: Acute cholecystitis, POA Acute complicated cystitis, POA Acute Dehydration, POA Leukocytosis, POA Hypotension POA Electrolyte imbalance hypokalemia K3.5 hypomagnesemia mg 1.8 Hyperglycemia without history of diabetes mellitus Ketonuria, POA Obesity, BNP 28.6 PLAN: Admit to medical floor. HIDA scan done, showed cholecystitis Patient pending cholecystectomy 01/04/[address] Angelo Continue Zosyn 3.375 IV q.8 hours. Continue with LR at 100 mL/hr. Continue PRN meds Urine culture contaminated As needed glucometer sticks. Blood pressure checks every 4 hours and as needed. Monitor renal and liver function. Monitor electrolytes and treat accordingly. GI and DVT prophylaxis. Patient will receive 60 mEq of potassium after surgery Patient will receive 2 g of magnesium at night A.m. labs. ATTESTATION BY PHYSICIAN I have seen and examined the patient. I reviewed the documentation, medical decision making, and treatment plan as noted by the mid-level provider above. I agree with the findings and plan of care. VERONIQUE Zazueta MD COMPRESSOR ENGINEER January 04, 2025 09:07
--- NOTE | 2025-01-04 09:31 | NUR ---
Patient being taken to procedure by OR staff
[2025-01-04] MEDS ORDERED: BUPIvacaine HCL/EPINEPHrine/PF 0.25% 10ML VIAL IJ ONE (10:05)
[2025-01-04] MEDS ORDERED: LIDOCAINE PF 100MG/5ML (2%) SYRINGE 5ML ONE (12:19)
[2025-01-04] MEDS ORDERED: rocuRONium bROMide 10MG/1ML 5ML VL ONE ×2 (12:19→13:15)
[2025-01-04] MEDS ORDERED: proPOFol 10 MG/ML 20ML VIAL IV ONE (12:19)
[2025-01-04] MEDS ORDERED: ketaMINE 50MG/ML SYRINGE 50 MG/ML DISP.SYRIN ONE (12:20)
[2025-01-04] MEDS ORDERED: FENTanyl CITRate PF 50 MCG/1 ML 2ML VIAL ONE (12:20)
[2025-01-04] MEDS ORDERED: ondanSETRON 4MG INJ ONE (12:27)
[2025-01-04] MEDS ORDERED: dexaMETHasone SOD PHOSPHATE 10MG/ML 1ML VIAL ONE (12:27)
[2025-01-04] MEDS ORDERED: NEOSTIGMINE METHYLSULFATE 1MG/ML IV ONE (14:08)
[2025-01-04] MEDS ORDERED: GLYCOPYRROLATE 0.2 MG/ML 5 ML VIAL ONE (14:08)
[2025-01-04] MEDS ORDERED: traMADol HCL 50 MG TABLET PO PRN (14:30)
[2025-01-04] MEDS ORDERED: morPHINE 2 MG SYG IVP PRN (14:30)
--- NOTE | 2025-01-04 14:36 | OP ---
Operative Note: DATE OF PROCEDURE: 01/04/25 SURGEON: NANCI RAI MD STAFF PSYCHOLOGIST: [facility] [place] ANESTHESIA: general PREOPERATIVE DIAGNOSIS: acute cholecystitis POSTOPERATIVE DIAGNOSIS: acute cholecystitis SYNOPSIS: acute cholecystitis with cholelithiasis PROCEDURE: laparoscopic cholecystectomy ESTIMATED BLOOD LOSS: 75 mL INDICATIONS: 29-year-old female with acute cholecystitis. A laparoscopic cholecystectomy was indicated. Informed consent was obtained prior to the procedure were discussion about the risks of the surgery including bleeding, infection, bile leak common bile duct injury, injury to surrounding viscera and possible open procedure. DESCRIPTION OF PROCEDURE: The patient was taken to the operating room and placed on the operating table in supine position. Next, general anesthesia was induced and they were intubated. Their abdomen was prepped and draped in a sterile fashion. Afterwards a timeout was called. The patient's identity, procedure, preoperative antibiotics and SCDs were all confirmed. I insufflated the abdomen with a Veress needle. Next, I entered the intra-abdominal cavity through a 12 mm epigastric incision using a 12 mm Optiview port with a 0 degree 10 mm scope. I placed a 3 additional ports in the following configuration: A 5 mm supraumbilical port and two 5 mm right subcostal ports. Next, I proceeded to remove the gallbladder. the gallbladder was acutely inflamed. It was thick walled. It was pretty well adhesed to the liver. I had to decompress it initially. The gallbladder wall was also very hard. The patient had central obesity with a very large falciform ligament and I had to make a additional incision to tether up the falciform ligament so that I could see during the operation. I used a harmonic scalpel to dissect the gallbladder off the liver bed fossa in a dome down fashion. I dissected down to the infundibulum. I skeletonized the cystic duct. The cystic artery was taken with the harmonic scalpel. I identified my critical my critical angle. I used PDS Endoloop to encircle the cystic duct. I transected the cystic duct with the harmonic scalpel and placed the specimen in an Endo Catch bag. The specimen was passed off. I inspected the gallbladder fossa. No active bleeding was seen. I closed the fascia of the epigastric port with a #1 Vicryl suture using the mireille-kristie device. the pneumoperitoneum was evacuated. The skin incisions were closed with Placido. 0.25% percent Marcaine with epinephrine was injected into the incision sites. The incisions were covered with sterile dressings. The sponge needle instrument counts were accurate. The patient was extubated and taken to recovery room in stable condition. NANCI RAI MD January 04, 2025 14:36
[2025-01-04] MEDS: morPHINE 2 MG SYG ONE ×2 (14:40→14:57)
[2025-01-04] MEDS: GABAPENTIN 300 MG CAPSULE ONE (15:17)
--- NOTE | 2025-01-04 15:25 | NUR ---
PATIENT ARRIVED FROM PACU DROWSY, ORIENTED X4, VITALS STABLE, DENIES PAIN AT THIS TIME CONTACTED RT FOR INCENTIVE SPIROMETRY
[2025-01-04] MEDS: FAMOTIDINE 20MG VIAL IV ONE (15:51)
[2025-01-04] MEDS: acetaMINOPHEN 100 ML ONE (15:51)
[2025-01-04] MEDS: LACTATED RINGERS 1000ML 1,000 ML IV ONE (15:51)
[2025-01-04] MEDS: LACTATED RINGERS 1000ML 1,000 ML IV SCH (16:18)
[2025-01-04] MEDS: PoTASSium chloRIDE 20MEQ ER 20 MEQ ERTAB PO ONE ×3 (17:10→23:24)
[2025-01-04] MEDS: SIMETHICONE 80 MG TAB.CHEW PO SCH (17:10)
[2025-01-04] MEDS: ondanSETRON 4MG INJ IVP PRN (18:11)
[2025-01-04] MEDS ORDERED: MAGNESIUM 2GM PREMIX 50ML 50 ML IV SCH (21:00)
[2025-01-04] MEDS: PROMETHAZINE HCL 25 MG/ML 1ML AMPULE IM ONE (21:14)
[2025-01-05] VITALS: BP 101/67; PULSE 87; RESP 18; TEMP 98.6
[2025-01-05 04:00] VITALS: BP 115/69; PULSE 79; RESP 17; TEMP 98.6
[2025-01-05 04:27] LABS: BASOPHILS # (AUTO) 0.03 K/uL (0.00-0.20); BASOPHILS % (AUTO) 0.2 % (0.0-5.0); HEMATOCRIT 37.3 % (36-48); IMMATURE GRANULOCYTE ABSOLUTE 0.05 K/uL (0-1); LYMPHOCYTES # (AUTO) 1.2 K/uL (1.0-4.8); LYMPHOCYTES % (AUTO) 8.5 % (21.0-51.0); MEAN CORPUSCULAR HEMOGLOBIN 27.8 pg (27.0-33.0); MEAN CORPUSCULAR HGB CONC 32.7 g/dL (32.0-36.0); MONOCYTES # (AUTO) 0.8 K/uL (0.1-1.0); MONOCYTES % (AUTO) 5.4 % (3.0-13.0); NEUTROPHILS # (AUTO) 12.3 K/uL (1.8-7.7); NEUTROPHILS % (AUTO) 85.6 % (40.0-77.0); PLATELET COUNT (AUTO) 277 K/uL (130-400); RED BLOOD CELL COUNT(AUTO) 4.39 MIL/uL (4.00-5.50); WHITE BLOOD COUNT (AUTO) 14.4 K/uL (4.8-10.8)
[2025-01-05 04:54] LABS: ALBUMIN 3.3 g/dL (3.5-5.0); BILIRUBIN,TOTAL 0.3 mg/dL (0.2-1.0); CREATININE 0.6 mg/dL (0.5-1.0); MAGNESIUM 1.8 mg/dL (1.80-2.40); POTASSIUM 4.7 mmol/L (3.5-5.1); TOTAL PROTEIN, SERUM 7.6 g/dL (6.0-8.3)
[2025-01-05 04:57] LABS: WBC MORPHOLOGY CONSISTENT W/DIFF
[2025-01-05 08:00] VITALS: BP 121/74; PULSE 102; RESP 16; TEMP 98.8; O2SAT 99
[2025-01-05 12:00] VITALS: BP 112/81; PULSE 100; RESP 19; TEMP 97.7
[2025-01-05] MEDS: acetaMINOPHEN 325 MG TAB PO PRN (12:39)
--- NOTE | 2025-01-05 13:18 | PN ---
[facility] PROGRESS NOTE Date of Service: January 05, 2025 Time of Service: 13:[address] Tsai SUBJECTIVE: [01/02 29-year-old female admitted due to ongoing abdominal pain for five days associated with nausea and vomiting. In the ER, a CT abdomen and pelvis was done which suggested acute cholecystitis. Patient is currently NPO and on IV fluids with IV antibiotics. We appreciate general surgeon recommendation, HIDA scan came back cholecystitis. But surgeon indicated possible intervention either Friday or Friday. Patient may have clear liquid diet per surgeon 01/03 patient was seen by nurse practitioner and physician during rounding in room 418. Patient is urinalysis was positive for leukocytosis. Urine culture was contaminated. WBC 10.3. Patient continues to be on Zosyn. HIDA scan showed cholecystitis. Patient is pending cholecystectomy tomorrow 01/04/[address] Angelo. We will continue to monitor patient in the meantime. A.m. labs 01/04 patient was seen by nurse practitioner and physician. Patient is pending cholecystectomy today with Dr. Angelo. Patient received 60 mEq of potassium after surgery POA as requested by the patient as well as magnesium 2 g at night. Anticipated discharge within 24 hours. We will continue to monitor patient in the meantime. A.m. labs 01/05 patient was seen by nurse practitioner physician during rounding in room 418. Patient is already ambulating in the room and by the nursing station. Patient is s/p cholecystectomy with a Dr. Angelo. Patient denies passing gases or any bowel movement but she is burping. Nurse practitioner reach out to Mike BROADCAST OPERATIONS TECHNICIAN from , pending further recommendation and possible discharge. We will continue to follow up patient. REVIEW OF SYSTEMS 12-point ROS reviewed with the patient. All pertinent positives mentioned above. Otherwise negative, noncontributory, non-pertinent. PHYSICAL EXAM GENERAL APPEARANCE: The patient is awake, alert, and oriented, in no acute cardiopulmonary distress. NEUROLOGICAL: Cranial nerves II-XII grossly intact. Motor is 5/5 in bilateral upper and lower extremities proximal to distal. No sensory deficits. HEENT: Face is symmetric. Pupils are equal and reactive. Extraocular movements are intact. NECK: Supple. No JVD. No thyromegaly. No submental, submandibular, pre- /postauricular, occipital or supraclavicular lymphadenopathy. CHEST: Normal chest expansion. No Telemetry. LUNGS: Absence of any rales, rhonchi or any wheezing. CARDIOVASCULAR: Regular. S1 and S2 normal. No appreciable rubs, murmurs or gallops. ABDOMEN: Obese. Upper abdominal tenderness. Soft and nondistended. There is no rebound, voluntary guarding, or rigidity. : Deferred. No Wren. EXTREMITIES: Non-edematous and not cyanotic. No clubbing. Good capillary refill. SKIN: No skin breakdown. Vital Signs (last 8hr) Date Time Temp Pulse Resp B/P (MAP) Pulse Ox O2 Delivery O2 Flow Rate FiO2 01/05/25 08:00 99 Room Air* 0 21 01/05/25 08:00 98.8 102 16 121/74 99 Room Air LABS: Laboratory: Test 01/05/25 04:14 01/04/25 03:09 Range/Units White Blood Count 14.4 H 4.8-10.8 K/uL Red Blood Count 4.39 4.00-5.50 MIL/uL Hemoglobin 12.2 12.0-16.0 g/dL Hematocrit 37.3 36-48 % Mean Corpuscular Volume 85.0 79-99 fL Mean Corpuscular Hemoglobin 27.8 27.0-33.0 pg Mean Corpuscular Hemoglobin Concent 32.7 32.0-36.0 g/dL Red Cell Distribution Width 12.0 11.0-15.5 % Platelet Count 277 130-400 K/uL Mean Platelet Volume 10.5 7.5-10.5 fL Immature Granulocyte % (Auto) 0.3 0-1 % Neutrophils (%) (Auto) 85.6 H 40.0-77.0 % Lymphocytes (%) (Auto) 8.5 L 21.0-51.0 % Monocytes (%) (Auto) 5.4 3.0-13.0 % Eosinophils (%) (Auto) 0.0 0.0-8.0 % Basophils (%) (Auto) 0.2 0.0-5.0 % Neutrophils # (Auto) 12.3 H 1.8-7.7 K/uL Lymphocytes # (Auto) 1.2 1.0-4.8 K/uL Monocytes # (Auto) 0.8 0.1-1.0 K/uL Eosinophils # (Auto) 0.00 0.00-0.70 K/uL Basophils # (Auto) 0.03 0.00-0.20 K/uL Absolute Immature Granulocyte (auto 0.05 0-1 K/uL Nucleated Red Blood Cells 0.0 0.0-0.19 % White Cell Morphology Comment CONSISTENT W/DIFF Sodium Level 137 136-145 mmol/L Potassium Level 4.7 3.5-5.1 mmol/L Chloride Level 103 101-111 mmol/L Carbon Dioxide Level 23 21-32 mmol/L Blood Urea Nitrogen 6 L 7-18 mg/dL Creatinine 0.6 0.5-1.0 mg/dL Glomerular Filtration Rate Calc 125 >90 mL/min Random Glucose 111 H 70-105 mg/dL Total Calcium 9.1 8.5-10.1 mg/dL Magnesium Level 1.80 1.80-2.40 mg/dL Total Bilirubin 0.3 0.2-1.0 mg/dL Aspartate Amino Transf (AST/SGOT) 66 H 10-37 U/L Alanine Aminotransferase (ALT/SGPT) 57 12-78 U/L Alkaline Phosphatase 38 L 50-136 U/L Total Protein 7.6 6.0-8.3 g/dL Albumin 3.3 L 3.5-5.0 g/dL Prothrombin Time 11.4 9.6-11.6 SEC Prothromb Time International Ratio 1.08 0.85-1.15 Activated Partial Thromboplast Time 34.5 26.3-35.5 SEC Current Medications Medications (Trade) Dose Ordered Sig/Yannick Route PRN Reason Start Time Stop Time Status Last Admin Dose Admin Acetaminophen (TYLenol 325MG TAB) 650 mg Q6H PRN PO FEVER/MILD PAIN LEVEL 1-3 12/31/24 22:30 01/30/25 22:29 01/05/25 12:39 650 MG Acetaminophen (TYLenol 650MG SUPPOSITORY) 650 mg Q6H PRN RC FEVER / MILD PAIN 1-3 IF NPO 12/31/24 22:30 01/30/25 22:29 Docusate Sodium (COLace 100MG CAP) 100 mg BID PRN PO CONSTIPATION 12/31/24 22:30 01/30/25 22:29 Ketorolac Tromethamine (toRADol) 30 mg Q6H PRN IVP MODERATE PAIN (4-6) 12/31/24 22:30 01/04/25 14:33 DC 01/01/25 03:37 30 MG Labetalol HCl (TRANdate 20MG SYG) 10 mg Q2H PRN IV SBP GREATER THAN 160 12/31/24 22:30 01/30/25 22:29 Lactated Ringer's 1,000 ml @ 100 mls/hr Q10H IV 12/31/24 22:30 01/04/25 09:20 DC 01/03/25 20:45 100 MLS/HR Lactated Ringer's 1,000 ml @ 100 mls/hr Q10H IV 01/04/25 09:30 02/03/25 09:29 01/04/25 20:22 100 MLS/HR Lactulose (Constulose 20gm/ 30ml Udcup) 20 gm Q6H PRN PO CONSTIPATION 12/31/24 22:30 01/30/25 22:29 Magnesium Sulfate 50 ml @ 0 mls/hr PROTOCOL IV 01/04/25 21:00 02/03/25 20:59 Morphine Sulfate (morPHINE 2MG SYG) 2 mg Q4H PRN IVP SEVERE PAIN (7-10) 12/31/24 22:30 01/04/25 14:32 DC Morphine Sulfate (morPHINE 2MG SYG) 4 mg Q3H PRN IVP SEVERE PAIN (7-10) 01/04/25 14:30 01/11/25 14:29 Ondansetron HCl (zoFRAN 4MG INJ) 4 mg Q6H PRN IVP NAUSEA/VOMITING 12/31/24 22:30 01/30/25 22:29 01/04/25 18:11 4 MG Piperacillin Sod/ Tazobactam Sod (Zosyn 3.375gm+NS 50ml) 3.375 gm Q8H IV 01/01/25 06:00 01/11/25 05:59 01/05/25 12:39 3.375 GM Simethicone (Mylicon) 80 mg QID PO 01/04/25 17:00 02/03/25 16:59 01/05/25 12:39 80 MG Temazepam (restORIL 15 MG CAP) 15 mg HS PRN PO INSOMNIA/SLEEP 12/31/24 22:30 01/30/25 22:29 Tramadol HCl (UltRAM) 50 mg Q4H PRN PO MODERATE PAIN (4-6) 01/04/25 14:30 01/09/25 14:29 DIAGNOSTICS / RADIOLOGY: [ ] ASSESSMENT: SIRS POA Acute cholecystitis, POA s/p cholecystectomy dr Angelo 01/04/25 Acute complicated cystitis, POA Acute Dehydration, POA Leukocytosis, POA Hypotension POA Electrolyte imbalance hypokalemia K3.5 hypomagnesemia mg 1.8 Hyperglycemia without history of diabetes mellitus Ketonuria, POA Obesity, BNP 28.6 PLAN: HIDA scan done, showed cholecystitis s/p cholecystectomy 01/04/[address] Angelo Continue Zosyn 3.375 IV q.8 hours. Continue with LR at 100 mL/hr. Continue PRN meds Urine culture contaminated As needed glucometer sticks. Blood pressure checks every 4 hours and as needed. Monitor renal and liver function. Monitor electrolytes and treat accordingly. GI and DVT prophylaxis. A.m. labs. ATTESTATION BY PHYSICIAN I have seen and examined the patient. I reviewed the documentation, medical decision making, and treatment plan as noted by the mid-level provider above. I agree with the findings and plan of care. VERONIQUE Zazueta MD MANAGER SITE January 05, 2025 13:18
[2025-01-05 16:00] VITALS: BP 103/65; PULSE 88; RESP 18; TEMP 98.3
--- NOTE | 2025-01-05 16:44 | DS ---
Discharge Summary Hospital Course Summary: DATE OF ADMISSION:[12/31/24] DATE OF DISCHARGE:[01/05/25] DISPOSITION:[home] CONDITION:[medically stable] CONSULTANTS:[sx] FOLLOW UP APPOINTMENTS:[PCP in2 to 3 days, sx in 1 to 2 weeks] PROCEDURES:[cholecystectomy 01/04/25] IMAGING: report attached to summary MICROBIOLOGY: report attached to summary ACTIVITY:[independent ] HOME MEDICATIONS: see NEW MEDICATIONS:[tramadol 25 mg q8h prn prescription written] EMERGENCY INSTRUCTIONS: The patient was instructed to present to the nearest Emergency departmentr or call 911 once their symptoms will return or worsen [employer](s): Patient is 29 years old female who came to emergency department with a upper abdominal pain with nausea and vomiting. Per CT abdomen/pelvis that was done in ER suggested acute cholecystitis. HIDA scan was performed and also showed cholecystitis. Patient was evaluated by the surgeon and cholecystectomy was performed on 01/04/2025. Today patient was cleared by surgeon to be discharged home and follow-up outpatient in 1 to 2 weeks. Patient was able to tolerate ful l liquid diet and then regular diet. Patient is passing gases and burping. Patient was also advised to follow up outpatient with PCP in 2 to 3 days. Procedure(s): REVIEW OF SYSTEMS 12-point ROS reviewed with the patient. All pertinent positives mentioned above. Otherwise negative, noncontributory, non-pertinent. PHYSICAL EXAM GENERAL APPEARANCE: The patient is awake, alert, and oriented, in no acute cardiopulmonary distress. NEUROLOGICAL: Cranial nerves II-XII grossly intact. Motor is 5/5 in bilateral upper and lower extremities proximal to distal. No sensory deficits. HEENT: Face is symmetric. Pupils are equal and reactive. Extraocular movements are intact. NECK: Supple. No JVD. No thyromegaly. No submental, submandibular, pre- /postauricular, occipital or supraclavicular lymphadenopathy. CHEST: Normal chest expansion. No Telemetry. LUNGS: Absence of any rales, rhonchi or any wheezing. CARDIOVASCULAR: Regular. S1 and S2 normal. No appreciable rubs, murmurs or gallops. ABDOMEN: Obese. Upper abdominal tenderness. Soft and nondistended. There is no rebound, voluntary guarding, or rigidity. : Deferred. No Wren. EXTREMITIES: Non-edematous and not cyanotic. No clubbing. Good capillary refill. SKIN: No skin breakdown. Assessment/Plan: ASSESSMENT: SIRS POA Acute cholecystitis, POA s/p cholecystectomy dr Angelo 01/04/25 Acute complicated cystitis, POA Acute Dehydration, POA Leukocytosis, POA Hypotension POA Electrolyte imbalance hypokalemia K3.5 hypomagnesemia mg 1.8 Hyperglycemia without history of diabetes mellitus Ketonuria, POA Obesity, BNP 28.6 Home Medications: Discontinued Scripts Ondansetron (Ondansetron Odt) 4 Mg Tab.rapdis, 4 MG PO Q6HPRN PRN for nausea, #16 TAB 0 Refills Prov:AMERICA VALENCIA MD 12/26/24 Time spent arranging discharge: 31-60 minutes ATTESTATION BY PHYSICIAN I have seen and examined the patient. I reviewed the documentation, medical decision making, and treatment plan as noted by the mid-level provider above. I agree with the findings and plan of care. VERONIQUE Zazueta MD COMPLIANCE AUDITOR January 05, 2025 16:44
[2025-01-05] MEDS ORDERED: morPHINE 4 MG SYG IVP PRN (18:00)
--- NOTE | 2025-01-05 18:01 | NUR ---
DISCHARGED patient given printed discharge instructions, educated patient and family regarding diet, activity, pot-operative teaching, reducing risk of infection to sites, follow up visits (phone number for surgeon's office given to patient since after 5pm) patient understood to call to schedule follow up, also educated regarding medications, signs and symptoms to report/return to ER. answer patient and family's questions, both understood
--- NOTE | 2025-01-07 10:37 | NUR ---
Transitional Phone Call Spoke with patient, states "very well, very good." States has prescription medication; no questions or concerns. States spoke to Lorenzo this morning 01/07/2025, working on insurance coverage. States waiting for insurance coverage to find and set up an appointment for PCP; reeducated patient on importance of follow up appointments, verbalized understanding; provided possible options, states when patient was little, she attended [facility] in [place], she will try to go there for PCP follow up appointment in two to three days; states the follow up appointment for surgeon - Dr. Angelo is scheduled for 01/20/2025. No questions or concerns at this time.
== END 2025-01-05 18:30 | disposition home or self-care (01) | DRG 418 ==
LOC: EDH 19:50 → EDHIP 19:51 → 4CH 01-01 00:05
PROVIDERS: ADMIT Internal Medicine; ATTEND Internal Medicine
PROC: 0FT44ZZ Resection of Gallbladder, Percutaneous Endoscopic Approach (ICD-10-PCS; principal; 2025-01-04 12:45)
DX: K80.00 Calculus of gallbladder with acute cholecystitis without obstruction (principal); N30.00 Acute cystitis without hematuria; R65.10 Systemic inflammatory response syndrome (SIRS) of non-infectious origin without acute organ dysfunction; K29.70 Gastritis, unspecified, without bleeding; K76.0 Fatty (change of) liver, not elsewhere classified; F19.90 Other psychoactive substance use, unspecified, uncomplicated; E86.0 Dehydration; I95.9 Hypotension, unspecified; E87.6 Hypokalemia; E83.42 Hypomagnesemia; R73.9 Hyperglycemia, unspecified; E66.9 Obesity, unspecified; I10 Essential (primary) hypertension; K59.00 Constipation, unspecified; Z68.28 Body mass index [BMI] 28.0-28.9, adult
CPT/HCPCS: 36415; 74177; 76700; 78227; 80048; 80053; 80076; 81001; 83690; 83735; 84100; 84443; 84703; 85025; 85027; 85610; 85730; 86850; 86900; 86901; 87086; 88304; 96361; 96365; 96366; 96375; 99285; A9537; G0378; J1100; J1885; J2003; J2270; J2405; J2543; J2550; J2704; J2710; J3010; J3490; J7030; J7120; Q9967; A4213; A4215; A4216; A4221; A4222; A4223; A4600; A4649; A4663